=== PATIENT | male | born 1990 | race Caucasian/White ===

== ENCOUNTER 2020-06-06 12:12 | Emergency (ER) | payer MEDICAID, SELFPAY ==
[2020-06-06 12:16] VITALS: BP 142/96; PULSE 87; RESP 18; TEMP 36.9; O2SAT 98; BMI 32.2
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
--- NOTE | 2020-06-06 13:33 | CT_ITS ---
PROCEDURE: CT HEAD/BRAIN WO CON CLINICAL INDICATION: trauma Head injury with headache/pain, contusion, abrasion or hematoma COMPARISON: No exams were available for comparison TECHNIQUE: Axial images obtained. All CT scans at the facility use one or more dose reduction, viz: automated exposure control, ma/kV adjustment per patient size (including targeted exams where dose is matched to indication, i.e. head), or iterative reconstruction technique. FINDINGS: No midline shift, mass effect, intracranial hemorrhage, hydrocephalus, or extra-axial fluid collection is evident. The calvarium has an unremarkable appearance. No mastoid effusion. There is mild mucosal thickening involving the ethmoid sinuses. IMPRESSION: No acute intracranial finding Dictated by: Osmany Castaneda MD 06/06/2020 14:17 Osmany Castaneda MD in [facility] 06/06/2020 14:17
--- NOTE | 2020-06-06 13:33 | CT_ITS ---
PROCEDURE: CT ABDOMEN PELVIS W CON CLINICAL INDICATION: abd pain Nausea, vomiting, diarrhea, right-sided abdominal pain COMPARISON: No exams were available for comparison TECHNIQUE: IV Contrast: 75ML Isovue 370 Oral Contrast None Axial images obtained with sagittal and coronal reformats. All CT scans at the facility use one or more dose reduction, viz: automated exposure control, ma/kV adjustment per patient size (including targeted exams where dose is matched to indication, i.e. head), or iterative reconstruction technique. FINDINGS: LOWER THORAX: No acute finding ABDOMEN & PELVIS: The liver, spleen, adrenal glands, pancreas, and kidneys have an unremarkable appearance. No evidence of appendicitis. No intestinal obstruction or free air. No evidence of diverticulitis. No pelvic mass or abnormal fluid collection. No acute bony findings. IMPRESSION: No acute finding Dictated by: Osmany Castaneda MD 06/06/2020 14:23 Osmany Castaneda MD in [facility] 06/06/2020 14:23
[2020-06-06 13:43] VITALS: BP 132/86; PULSE 76; O2SAT 96
[2020-06-06 13:45] LABS: Basophils % 0.5 % (0.1-2.0); Eosinophils # 0.1 K/mm3 (0.0-0.4); Eosinophils % 0.9 % (0.1-12.0); Hematocrit 48.2 % (42.0-52.0); Hemoglobin 16.5 g/dL (14.1-18.0); Lymphocytes # 1.7 K/mm3 (0.7-4.5); Lymphocytes % 26.5 % (10-50); Mean Corpuscular HGB Conc 34.2 g/dL (31.8-35.4); Mean Corpuscular Hemoglobin 32.4 pg (27.0-31.2); Mean Corpuscular Volume 94.8 fl (80-94); Monocytes # 0.3 K/mm3 (0.1-1.0); Monocytes % 5.1 % (1.7-9.3); Neutrophils # 4.3 K/mm3 (1.8-7.8); Platelet Count 297 K/mm3 (142-424); Red Blood Count 5.09 M/mm3 (4.60-6.20); Red Cell Distribution Width 13.1 % (11.5-17.5); White Blood Count 6.4 K/mm3 (4.8-10.8)
[2020-06-06 13:50] LABS: Chloride 107 mmol/L (98-107); Potassium 4.5 mmoL/L (3.5-5.1); Sodium 141 mmol/L (136-145)
[2020-06-06 13:52] LABS: Blood Urea Nitrogen 17 mg/dl (9-20); Creatinine Clearance Estimated 164 mL/min (50-200); Estimated Glomerular Filt Rate 78 ml/min (>60); GFR (African American) 94 ML/MIN (>60)
[2020-06-06 13:53] LABS: Alanine Aminotransferase 74 U/L (12-78); Albumin Level 4.9 g/dl (3.5-5.0); Albumin/Globulin Ratio 1.3 (1.1-1.8); Alkaline Phosphatase 80 U/L (38-126); Anion Gap 12.5 mEq/L (5-15); Aspartate Amino Transferase 66 U/L (17-59); Bilirubin,Total 0.6 mg/dl (0.2-1.3); Calcium 9.9 mg/dl (8.4-10.2); Carbon Dioxide 26 mmol/L (22.0-30.0); Globulin 3.7 g/dL (1.3-3.2); Glucose 120 mg/dl (74-100); Lipase 90 U/L (23-300); Total Protein,Serum 8.6 g/dl (6.3-8.2)
[2020-06-06 15:01] VITALS: BP 133/77; PULSE 77; RESP 17; TEMP 36.9; O2SAT 97
[2020-06-06 15:07] VITALS: BP 150/97; PULSE 77; RESP 20; TEMP 36.6; O2SAT 98
== END 2020-06-06 15:09 | disposition home or self-care (01) ==
PROVIDERS: Emergency Provider Family Medicine
DX: R55 Syncope and collapse (principal); F07.81 Postconcussional syndrome; R11.2 Nausea with vomiting, unspecified; W00.0XXA Fall on same level due to ice and snow, initial encounter; Y92.9 Unspecified place or not applicable; R03.0 Elevated blood-pressure reading, without diagnosis of hypertension
CPT/HCPCS: 70450; 74177; 80053; 83690; 85025; 96365; 99283

== ENCOUNTER → 2020-10-27 13:37 | Outpatient (CLI) | payer MEDICAID, SELFPAY ==
[2020-10-27 14:22] LABS: Basophils # 0.1 K/mm3 (0-0.2); Eosinophils # 0.2 K/mm3 (0.0-0.4); Eosinophils % 3.3 % (0.1-12.0); Hematocrit 47.2 % (42.0-52.0); Hemoglobin 16.6 g/dL (14.1-18.0); Lymphocytes # 1.7 K/mm3 (0.7-4.5); Lymphocytes % 22.9 % (10-50); Mean Corpuscular HGB Conc 35.1 g/dL (31.8-35.4); Mean Corpuscular Volume 91.3 fl (80-94); Mean Platelet Volume 8.5 fl (7.4-10.4); Monocytes # 0.4 K/mm3 (0.1-1.0); Monocytes % 6.1 % (1.7-9.3); Neutrophils # 4.8 K/mm3 (1.8-7.8); Neutrophils % 66.7 % (37.0-80.0); Platelet Count 318 K/mm3 (142-424); Red Blood Count 5.17 M/mm3 (4.60-6.20); Red Cell Distribution Width 13.3 % (11.5-17.5); White Blood Count 7.2 K/mm3 (4.8-10.8)
[2020-10-27 14:24] LABS: Alanine Aminotransferase 39 U/L (12-78); Albumin Level 4.9 g/dl (3.5-5.0); Albumin/Globulin Ratio 1.8 (1.1-1.8); Alkaline Phosphatase 71 U/L (38-126); Anion Gap 17.7 mEq/L (5-15); Aspartate Amino Transferase 32 U/L (17-59); Bilirubin,Total 0.8 mg/dl (0.2-1.3); Blood Urea Nitrogen 16 mg/dl (9-20); Calcium 9.3 mg/dl (8.4-10.2); Carbon Dioxide 24 mmol/L (22.0-30.0); Chloride 103 mmol/L (98-107); Cholesterol 201 mg/dl (140-200); Estimated Glomerular Filt Rate 98 ml/min (>60); GFR (African American) 118 ML/MIN (>60); Globulin 2.7 g/dL (1.3-3.2); Glucose 96 mg/dl (74-100); HDL Cholesterol 50 mg/dl (40-60); Potassium 4.7 mmoL/L (3.5-5.1); Sodium 140 mmol/L (136-145); Total Protein,Serum 7.6 g/dl (6.3-8.2); Triglycerides 132 mg/dl (30-150); VLDL Cholesterol 26 mg/dL (0-40)
[2020-10-27 14:34] LABS: Direct LDL Cholesterol 124.45 mg/dL (100-129)
[2020-10-27 14:42] LABS: Free T4 (Free Thyroxine) 0.95 ng/dl (0.78-2.19)
[2020-10-27 14:55] LABS: Thyroid Stimulating Hormone 2.86 uIU/mL (0.465-4.68)
[2020-10-27 15:39] LABS: 25-OH Vitamin D, Total 38.6 ng/mL (30-100)
== END ==
PROVIDERS: Visit Provider Physician Assistant
DX: Z00.00 Encounter for general adult medical examination without abnormal findings (principal); F41.9 Anxiety disorder, unspecified; R03.0 Elevated blood-pressure reading, without diagnosis of hypertension; R74.8 Abnormal levels of other serum enzymes; E66.9 Obesity, unspecified; Z68.31 Body mass index [BMI] 31.0-31.9, adult
CPT/HCPCS: 80053; 80061; 82306; 84439; 84443; 85025

== ENCOUNTER 2020-11-30 11:52 | Observation (INO) | payer MEDICAID, SELFPAY ==
[2020-11-30] VITALS (11 sets, daily range): BP systolic 109–148; BP diastolic 69–80; PULSE 78–91; RESP 18–19; TEMP 37.4–37.9; O2SAT 94–98; BMI 30.4; BMI 30.3
--- NOTE | 2020-11-30 12:51 | XR_ITS ---
PROCEDURE: XR CHEST PORTABLE CLINICAL HISTORY: covid +, fever COMPARISON: No exams were available for comparison FINDINGS: The cardiomediastinal silhouette and pulmonary vascularity are within normal limits. There is patchy ground-glass infiltrate in the left midlung and right lung base as well as left perihilar region suspicious for viral/Covid19 pneumonia. No effusions. There is an 8 mm nodule in the right lung base medially possibly due to a granuloma. A 4 mm nodules present in the left lung base centrally and may be due to a granuloma. Calcified nodes are present in the left hilum No acute bony abnormalities. IMPRESSION: Patchy bilateral ground-glass infiltrates suspicious for Covid19 pneumonia Dictated by: Osmany Castaneda MD 11/30/2020 14:09 Osmany Castaneda MD in [facility] 11/30/2020 14:09
[2020-11-30 13:42] LABS: Basophils % 0.7 % (0.1-2.0); Eosinophils % 0.1 % (0.1-12.0); Hematocrit 49.2 % (42.0-52.0); Hemoglobin 17.1 g/dL (14.1-18.0); Lymphocytes # 1.2 K/mm3 (0.7-4.5); Lymphocytes % 24.4 % (10-50); Mean Corpuscular HGB Conc 34.7 g/dL (31.8-35.4); Mean Corpuscular Hemoglobin 32.3 pg (27.0-31.2); Mean Corpuscular Volume 93.1 fl (80-94); Mean Platelet Volume 9.2 fl (7.4-10.4); Monocytes # 0.2 K/mm3 (0.1-1.0); Monocytes % 3.6 % (1.7-9.3); Neutrophils # 3.4 K/mm3 (1.8-7.8); Neutrophils % 71.1 % (37.0-80.0); Platelet Count 195 K/mm3 (142-424); Red Blood Count 5.28 M/mm3 (4.60-6.20); Red Cell Distribution Width 13.1 % (11.5-17.5); White Blood Count 4.8 K/mm3 (4.8-10.8)
[2020-11-30 13:45] LABS: Chloride 98 mmol/L (98-107); Sodium 137 mmol/L (136-145)
[2020-11-30 13:47] LABS: Alanine Aminotransferase 39 U/L (12-78); Aspartate Amino Transferase 62 U/L (17-59); Blood Urea Nitrogen 11 mg/dl (9-20); Creatinine Clearance Estimated 142 mL/min (50-200); Estimated Glomerular Filt Rate 70 ml/min (>60); GFR (African American) 85 ML/MIN (>60)
[2020-11-30 13:48] LABS: Albumin Level 4.4 g/dl (3.5-5.0); Albumin/Globulin Ratio 1.3 (1.1-1.8); Alkaline Phosphatase 63 U/L (38-126); Bilirubin,Total 0.5 mg/dl (0.2-1.3); Calcium 8.3 mg/dl (8.4-10.2); Carbon Dioxide 25 mmol/L (22.0-30.0); Globulin 3.3 g/dL (1.3-3.2); Glucose 110 mg/dl (74-100); Total Protein,Serum 7.7 g/dl (6.3-8.2)
--- NOTE | 2020-11-30 14:12 | HMH.EDGENADL ---
ED Disposition Clinical Impression: Pneumonia due to COVID-19 virus, Hypoxia Disposition: Admitted As Inpatient Condition on Discharge: [facility] - Critical Care Critical Care Time: No Attestation: On 11/30/20, the high probability of a clinically significant, sudden or life threatening deterioration of the following system(s) required my full and direct attention, intervention and personal management. The time I documented below is in addition to time spent performing reported procedures but includes the following listed in this critical care notation. Medical Decision Making - Joe Inquiry Pt receiving controlled substance: No Vital Signs: 11/30/20 11:53 11/30/20 12:30 11/30/20 13:15 Temperature 99.4 F Temperature Source Oral Pulse Rate 86 80 Pulse Rate [Right] 91 H Respiratory Rate 18 Blood Pressure 109/70 L 116/80 Blood Pressure [Right Arm] 114/70 Blood Pressure Mean [Right Arm] 84 02 Sat by Pulse Oximetry 94 L 94 L 96 Oxygen Delivery Method Room Air 11/30/20 14:34 11/30/20 15:10 11/30/20 15:17 Temperature 99.4 F Temperature Source Oral Pulse Rate 90 86 88 Pulse Rate [Right] Respiratory Rate 18 Blood Pressure 125/69 148/74 H 148/74 H Blood Pressure [Right Arm] Blood Pressure Mean [Right Arm] 02 Sat by Pulse Oximetry 96 97 Oxygen Delivery Method Room Air 11/30/20 15:30 Temperature Temperature Source Pulse Rate 82 Pulse Rate [Right] Respiratory Rate Blood Pressure 131/70 Blood Pressure [Right Arm] Blood Pressure Mean [Right Arm] 02 Sat by Pulse Oximetry 97 Oxygen Delivery Method - Lab Data Lab Results 11/30/20 13:35: WBC 4.8, RBC 5.28, Hgb 17.1, Hct 49.2, MCV 93.1, MCH 32.3 H, MCHC 34.7, RDW 13.1, Plt Count 195, MPV 9.2, Neut % (Auto) 71.1, Lymph % (Auto) 24.4, Walker % (Auto) 3.6, Eos % (Auto) 0.1, Baso % (Auto) 0.7, Neut # (Auto) 3.4, Lymph # (Auto) 1.2, Walker # (Auto) 0.2, Eos # (Auto) 0.0, Baso # (Auto) 0.0 11/30/20 13:35: Sodium 137, Potassium 4.0, Chloride 98, Carbon Dioxide 25, Anion Gap 18.0 H, BUN 11, Creatinine 1.20, Estimated Creat Clear 142, Estimated GFR 70, Est GFR ( Amer) 85, Glucose 110 H, Calcium 8.3 L, Total Bilirubin 0.5, AST 62 H, ALT 39, Alkaline Phosphatase 63, Total Protein 7.7, Albumin 4.4, Globulin 3.3 H, Albumin/Globulin Ratio 1.3 11/30/20 14:30: Lactate 0.7 11/30/20 14:30: SARS-CoV-2 (PCR) Detected A, Influenza A Untype (PCR) Not detected, Influenza Type B (PCR) Not detected Result diagrams: 11/30/20 13:35 11/30/20 13:35 Orders (Tests/Meds): ED MEDICATIONS Generic Name Dose Route Start Last Admin Trade Name Freq PRN Reason Stop Dose Admin Acetaminophen 650 mg 11/30/20 15:19 Acetaminophen 325mg Tab PO 12/30/20 15:18 Q6HP PRN Mild pain,fever,headache Ascorbic Acid 500 mg 11/30/20 17:00 Ascorbic Acid 500mg Tab PO 12/30/20 16:59 QID GINGER Dexamethasone Sodium Phosphate 6 mg 11/30/20 15:19 Dexamethasone 4mg/Ml 1ml Vial IV 12/30/20 15:18 DAILY GINGER Enoxaparin Sodium 60 mg 11/30/20 15:19 Enoxaparin 60mg/0.6ml Syringe SQ 12/30/20 15:18 DAILY GINGER Ergocalciferol 50,000 unit 11/30/20 15:19 Ergocalciferol 50,000 Units (1.25mg) Capsule PO 12/30/20 15:18 WEEKLY GINGER Famotidine 20 mg 11/30/20 21:00 Famotidine 20mg Tablet PO 12/30/20 20:59 BID GINGER Sodium Chloride 1,000 mls @ 100 mls/hr 11/30/20 15:19 Sod Chlor 0.9% 1000ml Bag IV 12/30/20 15:18 .Q10H GINGER Remdesivir 200 mg/ Sodium 250 mls @ 250 mls/hr 11/30/20 15:45 Chloride IV 11/30/20 16:44 ONCE ONE Remdesivir 100 mg/ Sodium 100 mls @ 100 mls/hr 12/01/20 15:00 Chloride IV 12/04/20 15:59 Q24H GINGER Sodium Chloride 10 ml 11/30/20 15:19 Sodium Chloride 0.9% 10ml Syr (Rad Only) IV 12/30/20 14:54 NEEDED PRN Maintain IV Site Sodium Chloride 10 ml 11/30/20 15:19 Sodium Chloride 0.9% 10ml Flush Syringe IV 12/30/20 15:18 NEEDED PRN M
--- NOTE | 2020-11-30 14:14 | CT_ITS ---
PROCEDURE: CT ANGIO CHEST PE PROTOCOL CLINCIAL INDICATION: covid, hypoxia COMPARISON: No exams were available for comparison TECHNIQUE: IV Contrast: 70ML Isovue 370 Axial images obtained with sagittal and coronal reformats. All CT scans at the facility use one or more dose reduction, viz: automated exposure control, ma/kV adjustment per patient size (including targeted exams where dose is matched to indication, i.e. head), or iterative reconstruction technique. FINDINGS: The contrast opacification is less than optimal. There is no large central pulmonary embolus. The peripheral pulmonary arteries are not adequately opacified. No evidence of aortic aneurysm or dissection. There is some increased soft tissue density in the anterior mediastinum which may be related to residual thymic tissue. Gynecomastia is noted. There are multifocal areas ground-glass opacification in both upper and lower lobes consistent with Covid19 pneumonia. No effusions. Minimal atelectasis in the right lung base. The extreme lung apices are not included on the exam. There is some minimal pericardial thickening IMPRESSION: Multifocal areas of ground-glass opacification consistent with Covid19 pneumonia No evidence of central pulmonary embolus. Dictated by: Osmany Castaneda MD 11/30/2020 15:27 Osmany Castaneda MD in [facility] 11/30/2020 15:27
--- NOTE | 2020-11-30 14:33 | PC.NURSE ---
notified care management of admission
[2020-11-30 14:40] LABS: Influenza A, PCR Not Detected (NotDetected); Influenza B, PCR Not Detected (NotDetected)
--- NOTE | 2020-11-30 14:44 | PC.NURSE ---
pt with radiology
[2020-11-30 14:52] LABS: Lactic Acid 0.7 mmol/L (0.7-2.1)
[2020-11-30 15:12] LABS: Coronavirus 19, PCR Detected (NotDetected)
--- NOTE | 2020-11-30 15:17 | PC.NURSE ---
Report given to Aubree SONI.
--- NOTE | 2020-11-30 15:42 | HMH.PHAVTE ---
[facility] Pharmacy VTE Monitoring - Patient Demographics Admission date: 11/30/20 Report Date: 11/30/20 Time: 15:42 Allergies/Adverse Reactions: Patient Allergies No Known Allergies Allergy (Verified 10/27/20 10:54) Height: 1.93 m Weight: 113.398 kg Patient Problems: Current Active Problems Pneumonia due to COVID-19 virus (Acute) Hypoxia (Acute) - VTE Risk Labs: VTE Related Lab Results Hgb 17.1 g/dL (14.1-18.0) 11/30/20 13:35 Hct 49.2 % (42.0-52.0) 11/30/20 13:35 Plt Count 195 K/mm3 (142-424) 11/30/20 13:35 BUN 11 mg/dl (9-20) 11/30/20 13:35 Creatinine 1.20 mg/dl (0.66-1.25) 11/30/20 13:35 Estimated Creat Clear 142 mL/min (50-200) 11/30/20 13:35 - Prophylaxis Types of VTE Prophylaxis: TEDS Knee High, Pharmacological (LOVENOX AND TEDS)
--- NOTE | 2020-11-30 16:05 | PC.NURSE ---
Pt arrived to floor at this time
--- NOTE | 2020-11-30 17:37 | PC.NURSE ---
Pt unable to induce sputum sample at this. Instruction given and cup left at bedside.
--- NOTE | 2020-11-30 18:08 | PC.NURSE ---
Pt arrived to unit at 1600. Pt has been febrile, highest temp 101.5, and 1 episode of N/V and has been treated per MAR with favorable results. Pt has voiced no complaints of pain. Pt is able to ambulate to bathroom independently. Call light within reach. Will continue to monitor.
[2020-12-01] VITALS: BP 132/72; PULSE 81; RESP 16; TEMP 36.7; O2SAT 96
--- NOTE | 2020-12-01 03:15 | PC.NURSE ---
Pt. has not c/o n/v/d, pain or dizziness this shift. Intermittent nonproductive cough noted. RA with o2 sat 95-97%. Resting in bed with eyes closed at this time.
[2020-12-01 04:00] VITALS: BP 120/84; PULSE 89; RESP 20; TEMP 37.6; O2SAT 97
[2020-12-01 06:00] VITALS: BMI 30.3
[2020-12-01 07:36] LABS: Chloride 101 mmol/L (98-107); Potassium 3.9 mmoL/L (3.5-5.1); Sodium 138 mmol/L (136-145)
[2020-12-01 07:39] LABS: Blood Urea Nitrogen 10 mg/dl (9-20); Creatinine Clearance Estimated 188 mL/min (50-200); Estimated Glomerular Filt Rate 98 ml/min (>60); GFR (African American) 118 ML/MIN (>60)
[2020-12-01 07:40] LABS: Alanine Aminotransferase 40 U/L (12-78); Alkaline Phosphatase 52 U/L (38-126); Anion Gap 18.9 mEq/L (5-15); Aspartate Amino Transferase 59 U/L (17-59); Bilirubin,Direct 0.4 mg/dl (0.0-0.4); Bilirubin,Total 0.4 mg/dl (0.2-1.3); Calcium 8.1 mg/dl (8.4-10.2); Carbon Dioxide 22 mmol/L (22.0-30.0); Glucose 126 mg/dl (74-100)
--- NOTE | 2020-12-01 07:51 | HMH.HP ---
*Admission Date: 11/30/20 *Chief complaint: Shortness of breath *History of present illness: 30 YOM presented to [facility] ED for SOA and emesis x 1 day. 7 days prior and was positive, his entire family including father is also positive. His father was inpatient at [facility] for several days he did not require ventilation while there has been discharged back to home now. His temperature has been high as 100.3, yesterday it was 94 he became worried along with increasing shortness of breath and nonproductive cough presented to the emergency department. Reports having no chronic medical conditions, is on no medication. BuSpar. He denies tobacco products, alcohol occasionally, denies any illicit use. He also denies pelvic pain 11/30/20 CXR: FINDINGS: The cardiomediastinal silhouette and pulmonary vascularity are within normal limits. There is patchy ground-glass infiltrate in the left midlung and right lung base as well as left perihilar region suspicious for viral/Covid19 pneumonia. No effusions. There is an 8 mm nodule in the right lung base medially possibly due to a granuloma. A 4 mm nodules present in the left lung base centrally and may be due to a granuloma. Calcified nodes are present in the left hilum No acute bony abnormalities. IMPRESSION: Patchy bilateral ground-glass infiltrates suspicious for Covid19 pneumonia Dictated by: Osmany Castaneda MD 11/30/20 Chest CTA: FINDINGS: The contrast opacification is less than optimal. There is no large central pulmonary embolus. The peripheral pulmonary arteries are not adequately opacified. No evidence of aortic aneurysm or dissection. There is some increased soft tissue density in the anterior mediastinum which may be related to residual thymic tissue. Gynecomastia is noted. There are multifocal areas ground-glass opacification in both upper and lower lobes consistent with Covid19 pneumonia. No effusions. Minimal atelectasis in the right lung base. The extreme lung apices are not included on the exam. There is some minimal pericardial thickening IMPRESSION: Multifocal areas of ground-glass opacification consistent with Covid19 pneumonia No evidence of central pulmonary embolus. Dictated by: Osmany Castaneda MD 30 year old Male presents in bed resting quietly with declined treatment, he denies any respiratory distress during the night. He does report occasional white productive cough, sputum sample obtained. Current oxygenation 97% on room air [facility] History I have reviewed the patient's past medical history: Yes Medical History: Denies:: Internal Pacemaker *Have you ever received a pneumonia vaccine?: No *Have you received a flu vaccine this season?: No Laterality Cases: Right: Arthroscopy Knee Other Surgeries: No: Pacemaker - *Social History Last grade of school completed: High school graduate Smoking Status: Never smoker Alcohol Intake: current Alcohol Intake Frequency:: holidays/special occasions only Substance Use Type: denies use *Occupational Status:: employed Housing: house Household Members: spouse, children *Travel in the last 8 weeks: None Family Hx:: Cancer, Hypertension Review of Systems - Review of Systems Review of systems:: pertinent systems reviewed and negative unless documented below - Constitutional Reports fatigue, Reports fever(s), Reports lack of energy - Eyes Denies change in vision, Denies double vision - ENT Denies abnormal hearing, Denies dizziness - *Cardiovascular Reports shortness of breath, Reports shortness of breath with activity - *Respiratory Reports chest congestion, Reports cough, Reports shortness of breath, Reports shortness of breath with activity - *Gastrointestinal Denies abdominal pain, Denies constipation - *Musculoskeletal Reports muscle weakness, Denies joint pain - Integumentary/Breasts Denies bleeding lesions, Denies yellowing of the skin - *Neurologic Reports
[2020-12-01 08:00] VITALS: BP 129/71; PULSE 98; RESP 19; TEMP 38.1; O2SAT 94; O2SAT 98
--- NOTE | 2020-12-01 10:25 | HMH.PULMCON ---
*Admission Date: 11/30/20 *Reason for consult:: Acute hypoxic respiratory failure, COVID-19 pneumonia *History of present illness: Mr. Kohler is a 30-year-old male no significant smoking history momentarily smoked when he was in high school, no prior respiratory complaints, and Unvaccinated for COVID-19 pneumonia presented to the hospital with subjective fevers and worsening respiratory failure. Patient admits high-grade fever since Saturday however since the 2 days patient noted to be hypothermic along with weakness and dizziness along with worsening respiratory distress admitted to the hospital for management of COVID-19 pneumonia and pulmonary was called. His father was recently diagnosed with COVID-19 pneumonia [facility] History Medical History: Denies:: Internal Pacemaker *Have you ever received a pneumonia vaccine?: No *Have you received a flu vaccine this season?: No Laterality Cases: Right: Arthroscopy Knee Other Surgeries: No: Pacemaker - *Social History Last grade of school completed: High school graduate Smoking Status: Never smoker Alcohol Intake: current Alcohol Intake Frequency:: holidays/special occasions only Substance Use Type: denies use *Occupational Status:: employed Housing: house Household Members: spouse, children *Travel in the last 8 weeks: None Family Hx:: Cancer, Hypertension ROS - Cons Reports anorexia, Reports body ache(s), Reports chills, Reports fever(s) - Eyes Denies blind spots, Denies blurry vision - ENT Reports abnormal hearing - Card Reports shortness of breath, Reports shortness of breath with activity - Resp Respiratory: Reports chest congestion, Reports cough, Reports non-productive cough, Denies excessive phlegm production, Denies coughing up blood, Denies pain on inspiration, Denies pain with cough, Denies pain with breathing - GI Gastrointestingal: Denies: abdominal pain - Musk Musculoskeletal: Denies back pain - Psych Reports abnormal sleep pattern Meds Home Medications Medication Instructions Recorded Confirmed Type Buspirone HCl [Buspar 5mg tablet] 5 mg PO BID 11/30/20 11/30/20 History Allergies Allergy/AdvReac Type Severity Reaction Status Date / Time No Known Allergies Allergy Verified 10/27/20 10:54 Exam - Constitutional Constitutional:: Present: no acute distress, comfortable - HENMT Exam HENMT: Present: normocephalic, atraumatic - Eye Exam Eyes:: Present: normal appearance both eyes and related structures - Neck Exam Neck:: Present: normal visual inspection, thyroid normal - Respiratory Exam Respiratory:: Present: able to speak in complete sentences, no respiratory distress, crackles. Absent: wheezing - Cardiovascular Exam Cardiac:: Present: S1, S2 - GI Exam GI:: Present: soft, no hepatosplenomegaly - Skin Exam Skin: Present: warm, no rash, dry - Neurological Exam Neurological: Present: alert, awake, normal cognition - Extremities Exam Extremities: Present: no cyanosis, no clubbing, no edema Internal Medicine - CN: Reslt - Labs CBC & Chem 7: 11/30/20 13:35 12/01/20 06:06 Labs: Short CBC 11/30/20 Range/Units 13:35 WBC 4.8 (4.8-10.8) K/mm3 Hgb 17.1 (14.1-18.0) g/dL Hct 49.2 (42.0-52.0) % Plt Count 195 (142-424) K/mm3 BMP 11/30/20 12/01/20 13:35 06:06 Sodium 137 138 Potassium 4.0 3.9 Chloride 98 101 Carbon Dioxide 25 22 BUN 11 10 Creatinine 1.20 0.90 D Glucose 110 H 126 H Calcium 8.3 L 8.1 L Liver Function 11/30/20 12/01/20 Range/Units 13:35 06:06 Total Bilirubin 0.5 0.4 (0.2-1.3) mg/dl Direct Bilirubin 0.4 (0.0-0.4) mg/dl AST 62 H 59 (17-59) U/L ALT 39 40 (12-78) U/L Alkaline Phosphatase 63 52 (38-126) U/L Albumin 4.4 4.0 (3.5-5.0) g/dl Assessment and Plan (1) Obesity (BMI 30.0-34.9) Status: Acute Category: Medical Code(s): E66.9 - Obesity, unspecified (2) Pneumonia due to COVID-19 virus Status: Acute Categ
[2020-12-01 11:26] LABS: Lactate Dehydrogenase 279 U/L (313-618)
[2020-12-01 11:32] LABS: C-Reactive Protein 18.3 mg/L (0-4)
[2020-12-01 11:33] LABS: D-Dimer 0.47 ug/mL (0.0-0.5)
[2020-12-01 12:00] VITALS: BP 121/66; PULSE 98; RESP 20; TEMP 36.6; O2SAT 96
--- NOTE | 2020-12-01 13:39 | PC.NURSE ---
This RN has taken over pt care at this time
--- NOTE | 2020-12-01 15:04 | PC.NURSE ---
[id number]- spoke to River at [facility] office regarding positive blood cultures on pt
--- NOTE | 2020-12-01 15:16 | PC.NURSE ---
spoke to Radha from lab, verified pt's , room number and name, passed information on to primary nurse, ZACHARIAH Jewell
[2020-12-01 16:00] VITALS: BP 136/66; PULSE 96; RESP 18; TEMP 36.8; O2SAT 97
[2020-12-01 20:00] VITALS: BP 141/86; PULSE 97; RESP 20; TEMP 37.1; O2SAT 96
[2020-12-02] VITALS: BP 105/62; PULSE 72; RESP 20; TEMP 36.7; O2SAT 95
--- NOTE | 2020-12-02 03:01 | PC.NURSE ---
Pt c/o anxiety this shift. Pt stated that he missed two doses of buspar. Medication was administered. Pt continued to c/o anxiety and requested to have something to sleep. [facility] notified. Ativan 1 mg PO ordered and administered. Pt remains on RA. O2 sats have remained mid to upper 90s. Lungs are diminished. Pt states he wants to go home in the morning. No other concerns. Will continue to monitor.
[2020-12-02 04:00] VITALS: BP 126/68; PULSE 67; RESP 28; TEMP 36.8; O2SAT 97
[2020-12-02 05:03] VITALS: BMI 30.1
[2020-12-02 06:54] LABS: Alanine Aminotransferase 32 U/L (12-78); Albumin Level 3.5 g/dl (3.5-5.0); Alkaline Phosphatase 44 U/L (38-126); Aspartate Amino Transferase 52 U/L (17-59); Bilirubin,Direct 0.2 mg/dl (0.0-0.4); Bilirubin,Total 0.2 mg/dl (0.2-1.3); Blood Urea Nitrogen 14 mg/dl (9-20); Carbon Dioxide 26 mmol/L (22.0-30.0); Chloride 105 mmol/L (98-107); Creatinine Clearance Estimated 211 mL/min (50-200); Estimated Glomerular Filt Rate 112 ml/min (>60); GFR (African American) 136 ML/MIN (>60); Glucose 130 mg/dl (74-100); Sodium 140 mmol/L (136-145); Total Protein,Serum 6.3 g/dl (6.3-8.2)
[2020-12-02 08:00] VITALS: BP 138/80; PULSE 104; RESP 18; TEMP 36.8; O2SAT 93
--- NOTE | 2020-12-02 09:00 | P.PN_ITS ---
Internal Medicine - PN: Subj *Date: 12/02/20 *Time: 12:24 Interval history: No acute res events overnight. Weaned to RA this morning. Exam - Constitutional Constitutional:: Present: no acute distress, comfortable - HENMT Exam HENMT: Present: normocephalic - Eye Exam Eyes:: Present: normal appearance both eyes and related structures - Neck Exam Neck:: Present: normal visual inspection - Respiratory Exam Respiratory:: Present: able to speak in complete sentences, no respiratory distress - Cardiovascular Exam Cardiac:: Present: S1, S2 - GI Exam GI:: Present: soft - Skin Exam Skin: Present: warm, no rash - Neurological Exam Neurological: Present: alert, awake, normal cognition - Extremities Exam Extremities: Present: no cyanosis, no clubbing, no edema Assessment and Plan (1) Obesity (BMI 30.0-34.9) Status: Acute Category: Medical Code(s): E66.9 - Obesity, unspecified (2) Pneumonia due to COVID-19 virus Status: Acute Category: Medical Code(s): U07.1 - COVID-19; J12.82 - Pneumonia due to coronavirus disease 2019 (3) COVID-19 Status: Acute Category: Medical Code(s): U07.1 - COVID-19 - Assessment and plan all Dx Assessment and Plan for all problems:: #Acute hypoxic respiratory failure: #COVID-19 pneumonia: Mr. Kohler is a 30-year-old no prior respiratory complaint no significant smoking history and vaccinated for COVID-19 pneumonia presented to the hospital subjective fevers weakness and worsening respiratory distress along with nonproductive cough and found to be positive for COVID-19 pneumonia. Patient admits sick contact CT and admission showed bilateral patchy airspace disease with no evidence of pulmonary embolism. D-dimer within normal limits at 0.47 CRP mildly elevated at 18.3 with LDH at 279. Blood culture preliminary staph in 1 bottle within 24 hours, consider repeating blood cultures before ruling out as contaminant,awaiting speciation, methicillin esistance status along with nasal MRSA PCR, as this patient significantly improved, this can be followed as an outpatient by primary care Sputum preliminary staining showing gram-positive cocci in chains and clusters. Respiratory significantly improved, on room air this morning. Plan: Continue remdesivir dexamethasone at 6 mg twice daily for Covid 19 pneumonia until discharge Levofloxacin daily for possible community-acquired pneumonia x days Advair HFA twice daily on discharge, patient advised to wean inhaler frequency as tolerated Recommend chemical DVT prophylaxis #Thank you for involving pulmonary in this patient care. We will follow the p linnette in pulmonary clinic in 4-6 weeks. Please call with any further questions or concerns
[2020-12-02 12:00] VITALS: BP 141/73; PULSE 80; RESP 20; TEMP 37.2; O2SAT 95
--- NOTE | 2020-12-02 12:27 | DIET.NUTRFU ---
Pt admitted with pneumonia due to COVID-19 virus. Pt with improved PO intake. PO intake 92% average at last three meals. Will continue to monitor.
--- NOTE | 2020-12-02 13:10 | HMH.DCSUM ---
General - General Admission date:: 11/30/20 Discharge date: 12/02/20 HPI HPI: 30 YOM presented to [facility] ED for SOA and emesis x 1 day. 7 days prior and was positive, his entire family including father is also positive. His father was inpatient at [facility] for several days he did not require ventilation while there has been discharged back to home now. His temperature has been high as 100.3, yesterday it was 94 he became worried along with increasing shortness of breath and nonproductive cough presented to the emergency department. Reports having no chronic medical conditions, is on no medication. BuSpar. He denies tobacco products, alcohol occasionally, denies any illicit use. He also denies pelvic pain Hospital Course Hospital Course: 30 YOM presented to [facility] ED for SOA and emesis x 1 day. 7 days prior and was positive, his entire family including father is also positive. His father was inpatient at [facility] for several days he did not require ventilation while there has been discharged back to home now. His temperature has been high as 100.3, yesterday it was 94 he became worried along with increasing shortness of breath and nonproductive cough presented to the emergency department. Reports having no chronic medical conditions, is on no medication. BuSpar. He denies tobacco products, alcohol occasionally, denies any illicit use. He also denies pelvic pain 11/30/20 CXR: FINDINGS: The cardiomediastinal silhouette and pulmonary vascularity are within normal limits. There is patchy ground-glass infiltrate in the left midlung and right lung base as well as left perihilar region suspicious for viral/Covid19 pneumonia. No effusions. There is an 8 mm nodule in the right lung base medially possibly due to a granuloma. A 4 mm nodules present in the left lung base centrally and may be due to a granuloma. Calcified nodes are present in the left hilum No acute bony abnormalities. IMPRESSION: Patchy bilateral ground-glass infiltrates suspicious for Covid19 pneumonia Dictated by: Osmany Castaneda MD 11/30/20 Chest CTA: FINDINGS: The contrast opacification is less than optimal. There is no large central pulmonary embolus. The peripheral pulmonary arteries are not adequately opacified. No evidence of aortic aneurysm or dissection. There is some increased soft tissue density in the anterior mediastinum which may be related to residual thymic tissue. Gynecomastia is noted. There are multifocal areas ground-glass opacification in both upper and lower lobes consistent with Covid19 pneumonia. No effusions. Minimal atelectasis in the right lung base. The extreme lung apices are not included on the exam. There is some minimal pericardial thickening IMPRESSION: Multifocal areas of ground-glass opacification consistent with Covid19 pneumonia No evidence of central pulmonary embolus. Dictated by: Osmany Castaneda MD Pulmonology has seen and recommends: Levofloxacin daily for possible community-acquired pneumonia x days Advair HFA twice daily on discharge, patient advised to wean inhaler frequency as tolerated Recommend chemical DVT prophylaxis #Thank you for involving pulmonary in this patient care. We will follow the patient in pulmonary clinic in 4-6 weeks. Please call with any further questions or concerns During his stay he is receiving levofloxacin, remdesivir, and dexamethasone IV. 30-year-old male patient lying in bed resting quietly, he denies any respiratory distress during the night and asking to be discharged home. He denies any cough, respiratory distress, or shortness of breath during stay, oxygen saturation currently 98% on room air. Discussed discharge home with importance placed on follow-up appointments, he agrees will attend all follow-up appointments. PLAN: 1. We will discharge home today 2. Levofloxacin 750 mg daily p.o. x5 days 3. Advair inh
== END 2020-12-02 14:20 | disposition home or self-care (01) ==
LOC: ER 12:56 → ICU 14:39
PROVIDERS: Internal Medicine Pulmonary Disease; Admitting Provider Emergency Medicine; Emergency Provider Emergency Medicine; PCP Physician Assistant; Visit Provider Emergency Medicine
DX: U07.1 COVID-19 (principal); J12.82 Pneumonia due to coronavirus disease 2019
CPT/HCPCS: 36415; 71045; 71275; 80048; 80053; 80076; 83605; 83615; 85025; 85378; 86140; 87040; 87070; 87077; 87081; 87186; 87205; 99284; G0378; J1956; J2405; Q9967; U0003

== ENCOUNTER 2021-03-06 08:06 | Emergency (ER) | payer MEDICAID, SELFPAY ==
[2021-03-06 08:07] VITALS: BP 178/87; PULSE 70; RESP 18; TEMP 36.8; O2SAT 97; BMI 30.4
--- NOTE | 2021-03-06 08:24 | HMH.EDGENADL ---
ED Disposition Clinical Impression: Back pain Qualifiers: Back pain location: thoracic back pain Chronicity: acute Back pain laterality: midline Qualified Code(s): M54.6 - Pain in thoracic spine Disposition: Home, Self-Care Condition on Discharge: Good Referrals: Elsie Boyle PA [Primary Care Provider] - (Call for an appointment) Time of Disposition: 08:28 - Critical Care Critical Care Time: No Attestation: On 03/06/21, the high probability of a clinically significant, sudden or life threatening deterioration of the following system(s) required my full and direct attention, intervention and personal management. The time I documented below is in addition to time spent performing reported procedures but includes the following listed in this critical care notation. Medical Decision Making - Medical Records Medical records reviewed: Yes: I reviewed the patient's medical records. - Joe Inquiry Pt receiving controlled substance: No Vital Signs: 03/06/21 08:07 Temperature 98.3 F Temperature Source Oral Pulse Rate [Left Radial] 70 Respiratory Rate 18 Blood Pressure [Right Arm] 178/87 H Blood Pressure Mean [Right Arm] 117 02 Sat by Pulse Oximetry 97 Oxygen Delivery Method Room Air Medical Decision Narrative: 30yo M evaluated for 6 weeks of upper back pain without specific injury. Patient no acute distress on initial evaluation. Differential diagnosis includes was not limited to: Osteoarthritis, rheumatoid arthritis, osteomyelitis, degenerative disc disease. Patient does have some tenderness over his upper thoracic spine. He is already had x-rays obtained that were benign. Discussed with the patient his best next move would be to see his PCP and obtain an order for MRI for further evaluation. He has had no fever, no weight loss (other than during acute illness with Covid which he has gained back), no cough, no decrease in exercise tolerance. He is appropriate and stable for discharge with outpatient follow-up. General Adult HPI - General Chief complaint: PAIN Stated complaint: upper back pain for about 6 weeks Time Seen by Provider: 03/06/21 08:06 Mode of Arrival: Ambulatory Limitations: No Limitations Description of Symptoms (Recalled from ER Triage Doc. by RN): pt to ed per pvt car. pt is c/o upper back pain x6 weeks every morning when he wakes up. pt denies any injury or recent heavy lifting. pt states he does not have the pain during the day, it's only when he wakes up in the morning. pt states this pain does not radiate into any extremities. - History of Present Illness HPI narrative: 30yo M presents the emergency department secondary to upper back pain x6 weeks. Patient denies any recent trauma or fall. He states his pain is worse in the morning when he wakes up and improves as he gets moving for the day. Denies any history of IV drug abuse. Denies any history of heavy alcohol use. Denies any history of osteomyelitis or other deep space infections. Patient denies any fever, cough, nausea/vomit/diarrhea. Patient is being evaluated and treated by chiropractor for several weeks with no improvement. He had x-rays completed of chiropractor's office and no bony abnormalities were appreciated on plain films. - Related Data Previous Rx's Medication Instructions Recorded Budesonide/Formoterol Fumarate 2 puff INHALATION BID 30 Days 12/02/20 [Budesonide-Formoterol 160-4.5] #10.2 g clonazepam 0.5 mg tablet 0.25 mg PO BID #30 tab 12/19/20 escitalopram oxalate 10 mg tablet 10 mg PO DAILY #30 tab 02/23/21 Allergies Allergy/AdvReac Type Severity Reaction Status Date / Time No Known Allergies Allergy Verified 02/23/21 11:27 [facility] History - Hepatitis A Screen Drug use history?: No High risk sexual behaviors?: No History of sexually transmitted infection?: No Currently employed?: No Childcare worker?: No Do you have indoor plumbing?: Yes Do you have electricity?: Yes Attestation stat
[2021-03-06 08:43] VITALS: BP 160/79; PULSE 72; RESP 18; TEMP 36.8; O2SAT 98
== END 2021-03-06 08:44 | disposition home or self-care (01) ==
PROVIDERS: Emergency Provider Family Medicine; PCP Physician Assistant
DX: M54.6 Pain in thoracic spine (principal); F41.9 Anxiety disorder, unspecified
CPT/HCPCS: 99281

== ENCOUNTER → 2021-03-16 13:37 | Outpatient (CLI) | payer MEDICAID, SELFPAY ==
--- NOTE | 2021-03-16 13:37 | MR_ITS ---
PROCEDURE: MR THORACIC SPINE WO CON CLINICAL INDICATION: thoracic pain COMPARISON: CT CT ANGIO CHEST PE PROTOCOL from 11/30/2020 TECHNIQUE: Routine multiplanar multi echo sequences are performed without gadolinium enhancement. FINDINGS: There is normal alignment. There is a small area of decreased T1 and increased T2 signal involving the anterior inferior aspect of the T4 vertebral body and the anterior and superior aspect of the T11 vertebral body as well as the anterior and inferior aspect of the T9 vertebral body. T3-T4: Small left paracentral disc protrusion abutting the anterior aspect of the cord. T5-T6: Mild degenerative disc disease with minimal bulging disc. T6-T7: Minimal bulging disc with degenerative disc disease. T7-T8 and T8-T9 show some minimal irregularity the endplates. The spinal cord has an unremarkable appearance. No extruded herniated disc. No bony canal stenosis. There may be some underlying residual airspace disease in the lower lobes. This is difficult to ascertain with MRI may be better evaluated with CT. There is bony bridging involving the medial aspect of the right 4th and 5th ribs better seen on the previous CT scan IMPRESSION: Multilevel degenerative changes as described above. Please see above for detailed description. There is a small left paracentral disc protrusion at T3-T4 abutting the anterior aspect of the cord on the left. Areas of bone marrow edema involving the T4, T9, and T11 vertebral bodies anteriorly. These could represent developing type 1 endplate changes. Suggest 3 month follow-up to confirm stability. Possible residual airspace disease in the lower lobes. Consider chest CT for confirmation. Dictated by: Osmany Castaneda MD 03/17/2021 08:19 Osmany Castaneda MD in [place] 03/17/2021 08:19
== END ==
PROVIDERS: PCP Physician Assistant; Visit Provider Physician Assistant
DX: R07.9 Chest pain, unspecified (principal)
CPT/HCPCS: 72146

== ENCOUNTER → 2021-04-11 10:59 | Outpatient (POV) | payer MEDICAID, SELFPAY ==
[2021-04-11 11:34] VITALS: BP 142/68; PULSE 72; RESP 18; O2SAT 97; BMI 30.4
--- NOTE | 2021-04-13 07:49 | HMH.PMCON ---
Assessment and Plan (1) Degenerative disc disease, thoracic Status: Acute Category: Medical Code(s): M51.34 - Other intervertebral disc degeneration, thoracic region (2) Thoracic radiculopathy Status: Acute Category: Medical Code(s): M54.14 - Radiculopathy, thoracic region - Assessment and plan all Dx Assessment and Plan for all problems:: Patient is here today for mid back pain. He has not had physical therapy at this time. We will refer the patient to PT,and will start the patient on diclofenac 75 mg po bid, prednisone 20 mg 1 tablet po bid x days, and will start the patient on Cymbalta 30 mg 1 tablet by mouth daily. Patient does have an MRI that reports small left paracentral disc protrusion at T3-T4 abutting the anterior aspect of the cord on the left . Patient I did discuss the risks and side effects of the medication. He would like to try medications before beginning injective therapy. We will see him back in 2 weeks to see if medication and physical therapy. Risks and benefits of the medication have been explained in detail to the patient. If side effects do present with the medication, patient has been advised to stop the medication immediately and call the clinic. The patient has been advised to consult with his/her primary care provider and pharmacist regarding drug-drug interaction of medications currently prescribed. Pain management contract has been signed today. Patient has been instructed to contact the clinic with any concerns before the next appointment. Dr. Damon has reviewed this note and agrees with this plan of care. This note was dictated using voice recognition software and make contain errors or omissions. HPI - Data of Consult Patient: new to practice Consult date: 04/13/21 Requesting Physician: Sultana Pena APRN - Consult Narrative Reason for consult: mid back pain History of present illness: Mr. Kohler is a 31 year old male who presents today for complaints of mid back pain. He does report the pain to have worsened since January 2021. The pain has progressively worsened since then. He says the pain is more nocturnal, waking him at bedtime due to pain. He says the pain does improve somewhat during the day. 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 He describes the pain as throbbing and sharp in nature. He has gone to chiropractic therapy, as well as continued home stretching. He does take over the counter anti inflammatory medications in the past with minimal relief. He rates his pain a 6/10. He denies any bowel or bladder changes. He denies any pain/numbness or tingling to bilateral upper or lower extremities. He does report to have severe anxiety and has tried multiple medications in the past with side effects. He does have imaging of his thoracic spine CC: Sultana Pena APRN [facility] History I have reviewed the patient's past medical history: Yes Medical History: Reports:: Anxiety Denies:: Internal Pacemaker *Have you ever received a pneumonia vaccine?: No *Have you received a flu vaccine this season?: No Laterality Cases: Right: Arthroscopy Knee Other Surgeries: Yes: Other (Gum graft, meniscus repair. ). No: Pacemaker Amputation: No Fractures: No - *Social History Smoking Status: Never smoker Alcohol Intake: current Alcohol Intake Frequency:: holidays/special occasions only Substance Use Type: denies use *Occupational Status:: unemployed Housing: house Household Members: spouse, children *Travel in the last 8 weeks: None - Psychiatric History Pschychiatric History:: Reports:: Anxiety Family Hx:: Cancer, Hypertension Review of Systems - Review of Systems Review of Systems General: No recent weight changes, no fever, no sleep disturbances Respiratory: No cough, no shortness of air, no recurring pulmonary infections Cardiovascular/peripheral vascular: No chest pain, no palpitations, no edema, no shortness of breath Gastrointestinal: No new onset i
== END ==
PROVIDERS: Visit Provider Clinical Nurse Specialist Family Health
DX: M51.14 Intervertebral disc disorders with radiculopathy, thoracic region (principal)
CPT/HCPCS: 99202; G0463

== ENCOUNTER → 2021-08-17 13:56 | Outpatient (CLI) | payer MEDICAID, SELFPAY ==
[2021-08-17 17:46] LABS: Basophils # 0.1 K/mm3 (0-0.2); Basophils % 1.5 % (0.1-2.0); Eosinophils # 0.2 K/mm3 (0.0-0.4); Eosinophils % 3.6 % (0.1-12.0); Hematocrit 49.1 % (42.0-52.0); Hemoglobin 16.6 g/dL (14.1-18.0); Lymphocytes # 1.9 K/mm3 (0.7-4.5); Lymphocytes % 28.8 % (10-50); Mean Corpuscular HGB Conc 33.8 g/dL (31.8-35.4); Mean Corpuscular Volume 97.9 fl (80-94); Mean Platelet Volume 9.3 fl (7.4-10.4); Monocytes # 0.5 K/mm3 (0.1-1.0); Monocytes % 7.5 % (1.7-9.3); Neutrophils # 3.9 K/mm3 (1.8-7.8); Neutrophils % 58.6 % (37.0-80.0); Platelet Count 306 K/mm3 (142-424); Red Blood Count 5.02 M/mm3 (4.60-6.20); Red Cell Distribution Width 13.8 % (11.5-17.5); White Blood Count 6.7 K/mm3 (4.8-10.8)
[2021-08-17 17:53] LABS: Alanine Aminotransferase 50 U/L (12-78); Albumin Level 4.6 g/dl (3.5-5.0); Albumin/Globulin Ratio 1.8 (1.1-1.8); Alkaline Phosphatase 84 U/L (38-126); Anion Gap 13.4 mEq/L (5-15); Aspartate Amino Transferase 36 U/L (17-59); Bilirubin,Total 0.2 mg/dl (0.2-1.3); Blood Urea Nitrogen 19 mg/dl (9-20); Calcium 9.7 mg/dl (8.4-10.2); Carbon Dioxide 24 mmol/L (22.0-30.0); Chloride 106 mmol/L (98-107); Chol/HDL Ratio 4.6 (1-3.5); Cholesterol 222 mg/dl (140-200); Estimated Glomerular Filt Rate 97 ml/min (>60); GFR (African American) 118 ML/MIN (>60); Globulin 2.6 g/dL (1.3-3.2); Glucose 114 mg/dl (74-100); HDL Cholesterol 48 mg/dl (40-60); Potassium 4.4 mmoL/L (3.5-5.1); Sodium 139 mmol/L (136-145); Total Protein,Serum 7.2 g/dl (6.3-8.2); Triglycerides 201 mg/dl (30-150); VLDL Cholesterol 40 mg/dL (0-40)
[2021-08-17 18:04] LABS: Direct LDL Cholesterol 130.56 mg/dL (100-129)
[2021-08-17 18:25] LABS: Thyroid Stimulating Hormone 3.16 uIU/mL (0.465-4.68)
[2021-08-17 18:44] LABS: Vitamin B12 208 pg/mL (239-931)
== END ==
PROVIDERS: PCP Physician Assistant; Visit Provider Physician Assistant
DX: Z00.00 Encounter for general adult medical examination without abnormal findings (principal); E55.9 Vitamin D deficiency, unspecified; Z79.899 Other long term (current) drug therapy
CPT/HCPCS: 80053; 80061; 82306; 82607; 84443; 85025

== ENCOUNTER → 2021-08-25 08:12 | Outpatient (CLI) | payer MEDICAID, SELFPAY ==
--- NOTE | 2021-08-25 08:12 | US_ITS ---
FINAL REPORT CLINICAL HISTORY: RUQ pain, pale stools FINDINGS: Sonographic images of the right upper quadrant were obtained. The pancreas is partially obscured.The liver has increased echogenicity.The gallbladder appears normal without evidence of gallstones.There is no evidence of biliary ductal dilatation.The common duct measures 2 mm. Limited images of the right kidney are unremarkable. IMPRESSION: Fatty liver. Reviewed, Interpreted and Dictated by Kolby Eaton III, MD Transcribed by John Dillard Authenticated by Kolby Eaton III, MD on 08/25/2021 09:52:11 AM [facility]
== END ==
PROVIDERS: PCP Physician Assistant; Visit Provider Physician Assistant
DX: R10.11 Right upper quadrant pain (principal)
CPT/HCPCS: 76705

== ENCOUNTER → 2022-03-28 16:07 | Outpatient (CLI) | payer MEDICAID, SELFPAY ==
[2022-03-28 14:37] LABS: Basophils # 0.1 K/mm3 (0-0.2); Basophils % 1.2 % (0.1-2.0); Eosinophils # 0.2 K/mm3 (0.0-0.4); Eosinophils % 3.6 % (0.1-12.0); Hematocrit 45.3 % (42.0-52.0); Hemoglobin 15.2 g/dL (14.1-18.0); Lymphocytes # 2.2 K/mm3 (0.7-4.5); Lymphocytes % 39.8 % (10-50); Mean Corpuscular HGB Conc 33.6 g/dL (31.8-35.4); Mean Corpuscular Hemoglobin 32.3 pg (27.0-31.2); Mean Corpuscular Volume 96.2 fl (80-94); Mean Platelet Volume 9.1 fl (7.4-10.4); Monocytes # 0.4 K/mm3 (0.1-1.0); Monocytes % 7.6 % (1.7-9.3); Neutrophils # 2.6 K/mm3 (1.8-7.8); Neutrophils % 47.7 % (37.0-80.0); Platelet Count 352 K/mm3 (142-424); Red Blood Count 4.71 M/mm3 (4.60-6.20); Red Cell Distribution Width 13.2 % (11.5-17.5); White Blood Count 5.5 K/mm3 (4.8-10.8)
[2022-03-28 14:57] LABS: Alanine Aminotransferase 56 U/L (12-78); Albumin Level 4.6 g/dl (3.5-5.0); Albumin/Globulin Ratio 1.8 (1.1-1.8); Alkaline Phosphatase 87 U/L (38-126); Anion Gap 13.5 mEq/L (5-15); Aspartate Amino Transferase 44 U/L (17-59); Bilirubin,Total 0.8 mg/dl (0.2-1.3); Blood Urea Nitrogen 18 mg/dl (9-20); Carbon Dioxide 26 mmol/L (22.0-30.0); Chloride 105 mmol/L (98-107); Estimated Glomerular Filt Rate 86 ml/min (>60); GFR (African American) 103 ML/MIN (>60); Globulin 2.6 g/dL (1.3-3.2); Glucose 114 mg/dl (74-100); Potassium 4.5 mmoL/L (3.5-5.1); Sodium 140 mmol/L (136-145); Total Protein,Serum 7.2 g/dl (6.3-8.2)
[2022-03-28 15:28] LABS: Thyroid Stimulating Hormone 3.35 uIU/mL (0.465-4.68)
[2022-03-28 15:47] LABS: Vitamin B12 516 pg/mL (239-931)
[2022-03-28 17:28] LABS: Hemoglobin A1C 5.4 % (4.0-6.0)
[2022-03-28 17:43] LABS: 25-OH Vitamin D, Total 27.4 ng/mL (30-100)
[2022-03-30 10:13] LABS: Testosterone,Total 167 ng/dL (264-916)
== END ==
PROVIDERS: PCP Physician Assistant; Visit Provider Physician Assistant
DX: R73.09 Other abnormal glucose (principal); E55.9 Vitamin D deficiency, unspecified; E53.8 Deficiency of other specified B group vitamins; E29.1 Testicular hypofunction
CPT/HCPCS: 80053; 82306; 82607; 83036; 84403; 84443; 85025

== ENCOUNTER → 2022-04-23 12:55 | Outpatient (CLI) | payer MEDICAID, SELFPAY ==
[2022-04-23 14:00] VITALS: PULSE 74; PULSE 75
== END ==
PROVIDERS: PCP Physician Assistant; Visit Provider Physician Assistant
DX: R06.02 Shortness of breath (principal); Z86.16 Personal history of COVID-19
CPT/HCPCS: 94060; 94640; 94727; 94729

== ENCOUNTER → 2022-05-31 08:33 | Outpatient (CLI) | payer MEDICAID, SELFPAY ==
[2022-05-31 13:46] LABS: MANUAL DIFFERENTIAL MANUAL DIFFERENTIAL (MANUAL DIFF)
[2022-05-31 14:23] LABS: Basophils # 0.1 K/mm3 (0-0.2); Basophils % 1.5 % (0.1-2.0); Eosinophils # 0.2 K/mm3 (0.0-0.4); Eosinophils % 3.1 % (0.1-12.0); Hematocrit 49.4 % (42.0-52.0); Hemoglobin 16.1 g/dL (14.1-18.0); Lymphocytes # 2.2 K/mm3 (0.7-4.5); Lymphocytes % 31.8 % (10-50); Mean Corpuscular HGB Conc 32.7 g/dL (31.8-35.4); Mean Corpuscular Hemoglobin 31.8 pg (27.0-31.2); Mean Corpuscular Volume 97.5 fl (80-94); Mean Platelet Volume 9.1 fl (7.4-10.4); Monocytes # 0.5 K/mm3 (0.1-1.0); Monocytes % 7.2 % (1.7-9.3); Neutrophils # 3.9 K/mm3 (1.8-7.8); Neutrophils % 56.5 % (37.0-80.0); Platelet Count 361 K/mm3 (142-424); Red Blood Count 5.07 M/mm3 (4.60-6.20); Red Cell Distribution Width 13.2 % (11.5-17.5); White Blood Count 6.9 K/mm3 (4.8-10.8)
[2022-05-31 14:54] LABS: Eosinophils % 3 % (0-3); Lymphocytes % 31 % (10-50); Monocytes % 7 % (2-9); Neutrophils % 59 % (42-76); Total Cells Counted 100
[2022-05-31 14:55] LABS: RBC Morphology Normal
[2022-05-31 14:56] LABS: Platelet Estimate Normal
[2022-05-31 15:41] LABS: Prostate Specific Ag Screen 0.5 ng/ml (0.0-4.0)
[2022-06-02 08:33] LABS: FSH 5.6 mIU/mL (1.5-12.4); LH 6.3 mIU/mL (1.7-8.6); Prolactin 17.8 ng/mL (4.0-15.2); Testosterone,Total 179 ng/dL (264-916)
== END ==
PROVIDERS: PCP Physician Assistant; Visit Provider Physician Assistant
DX: E34.9 Endocrine disorder, unspecified (principal); E29.1 Testicular hypofunction; Z12.5 Encounter for screening for malignant neoplasm of prostate
CPT/HCPCS: 83001; 83002; 84146; 84403; 85007; 85014; 85018; 85048; 85049; G0103

== ENCOUNTER → 2022-12-03 13:09 | Outpatient (CLI) | payer MEDICAID, SELFPAY ==
[2022-12-03 12:56] LABS: Basophils % 0.4 % (0.1-2.0); Eosinophils # 0.2 K/mm3 (0.0-0.4); Eosinophils % 2.5 % (0.1-12.0); Hematocrit 45.5 % (42.0-52.0); Hemoglobin 15.4 g/dL (14.1-18.0); Lymphocytes # 1.6 K/mm3 (0.7-4.5); Lymphocytes % 27.4 % (10-50); Mean Corpuscular Volume 94.3 fl (80-94); Mean Platelet Volume 8.5 fl (7.4-10.4); Monocytes # 0.4 K/mm3 (0.1-1.0); Monocytes % 6.6 % (1.7-9.3); Neutrophils # 3.7 K/mm3 (1.8-7.8); Neutrophils % 63.1 % (37.0-80.0); Platelet Count 314 K/mm3 (142-424); Red Blood Count 4.82 M/mm3 (4.60-6.20); Red Cell Distribution Width 13.5 % (11.5-17.5); White Blood Count 5.9 K/mm3 (4.8-10.8)
[2022-12-03 13:50] LABS: Alanine Aminotransferase 34 U/L (12-78); Albumin Level 4.5 g/dl (3.5-5.0); Albumin/Globulin Ratio 1.6 (1.1-1.8); Alkaline Phosphatase 87 U/L (38-126); Anion Gap 16.1 mEq/L (5-15); Aspartate Amino Transferase 30 U/L (17-59); Bilirubin,Total 0.6 mg/dl (0.2-1.3); Blood Urea Nitrogen 16 mg/dl (9-20); Calcium 9.1 mg/dl (8.4-10.2); Carbon Dioxide 25 mmol/L (22.0-30.0); Chloride 104 mmol/L (98-107); Chol/HDL Ratio 4.7 (1-3.5); Cholesterol 229 mg/dl (140-200); Estimated Glomerular Filt Rate 111 ml/min (>60); GFR (African American) 134 ML/MIN (>60); Globulin 2.8 g/dL (1.3-3.2); Glucose 101 mg/dl (74-100); HDL Cholesterol 49 mg/dl (40-60); Potassium 4.1 mmoL/L (3.5-5.1); Sodium 141 mmol/L (136-145); Total Protein,Serum 7.3 g/dl (6.3-8.2); Triglycerides 129 mg/dl (30-150); VLDL Cholesterol 26 mg/dL (0-40)
[2022-12-03 14:02] LABS: Direct LDL Cholesterol 138.63 mg/dL (100-129)
[2022-12-03 14:07] LABS: 25-OH Vitamin D, Total 40.7 ng/mL (30-100)
[2022-12-03 14:22] LABS: Thyroid Stimulating Hormone 3.12 uIU/mL (0.465-4.68)
[2022-12-03 14:41] LABS: Vitamin B12 915 pg/mL (239-931)
[2022-12-04 08:18] LABS: Testosterone,Total 203 ng/dL (264-916)
== END ==
PROVIDERS: PCP Physician Assistant; Visit Provider Physician Assistant
DX: F41.9 Anxiety disorder, unspecified (principal); D51.9 Vitamin B12 deficiency anemia, unspecified; E55.9 Vitamin D deficiency, unspecified; R79.89 Other specified abnormal findings of blood chemistry; E66.9 Obesity, unspecified; Z68.32 Body mass index [BMI] 32.0-32.9, adult; E29.1 Testicular hypofunction; Z79.899 Other long term (current) drug therapy
CPT/HCPCS: 80053; 80061; 82306; 82607; 84403; 84443; 85025

== ENCOUNTER 2023-05-23 13:16 | Emergency (ER) | payer MEDICAID, SELFPAY ==
[2023-05-23 13:30] VITALS: BP 141/89; PULSE 101; RESP 18; TEMP 36.8; O2SAT 96; BMI 33.8
--- NOTE | 2023-05-23 13:31 | EXP.UTC ---
Discharge Plan Disposition Patient Disposition: Home, Self-Care Condition: Good Prescriptions Prescriptions: New methylprednisolone 4 mg Tablets,Dose Pack 4 mg PO DIRECTED 6 Days Qty: 21 0RF Rx Instructions: Take 1 pack as directed for 6 days amoxicillin-pot clavulanate 875-125 mg Tablet 1 tab PO Q12H Qty: 20 0RF No Action (DME) BD Luer-Gricel Syringe 3 mL 25 gauge x 1 syringe See Rx Instructions .ROUTE .COMPLEX Qty: 10 0RF Dose Instruction: FOR VITAMIN B12 DEFICIENCY ; TO USE FOR B-12 INJECTION Rx Instructions: FOR VITAMIN B12 DEFICIENCY ; TO USE FOR B-12 INJECTION cyanocobalamin (vitamin B-12) 1,000 mcg/mL solution 1,000 mcg SQ ONCE cholecalciferol (vitamin D3) 25 mcg (1,000 unit) capsule 25 mcg PO DAILY desvenlafaxine succinate 50 mg tablet extended release 24 hr 50 mg PO DAILY Referrals Follow up/Referrals: Elsie Boyle PA [Primary Care Provider] - See instructions Activity Restrictions/Add. Instructions Additional Instructions/Restrictions: Drink plenty of fluids. Take tylenol or ibuprofen for pain or fever. Take the medications as directed. Follow up with your regular doctor. GO TO THE ER FOR ANY WORSENING SYMPTOMS Clinical Impressions Clinical Impression: Otitis media Instructions Patient Instructions: Middle Ear Infection, Methylprednisolone, Amoxicillin and Clavulanic Acid Discharge ED Provider: Hola Granados [facility] General Stated complaint: Pain in R ear Time Seen by Provider: 05/23/23 13:31 History of Present Illness Provider Complaint: He states that for the past 4 days he has had bilateral ear pain. Related Data Home Medications Medication Instructions Recorded Confirmed cholecalciferol (vitamin D3) 25 25 mcg PO DAILY 05/23/23 05/23/23 mcg (1,000 unit) capsule cyanocobalamin (vitamin B-12) 1,000 mcg SQ ONCE 05/23/23 05/23/23 1,000 mcg/mL injection solution desvenlafaxine succinate 50 mg 50 mg PO DAILY 05/23/23 05/23/23 tablet,extended release 24 hr Previous Rx's Medication Instructions Recorded syringe with needle 3 mL 25 gauge #10 ea 05/07/23 x 1 (BD Luer-Gricel Syringe) amoxicillin 875 mg-potassium 1 tab PO Q12H #20 tabs 05/23/23 clavulanate 125 mg tablet methylprednisolone 4 mg tablets in 4 mg PO DIRECTED 6 days #21 tabs 05/23/23 a dose pack Allergies Allergy/AdvReac Type Severity Reaction Status Date / Time No Known Allergies Allergy Verified 03/07/23 08:41 [facility] Disclaimer: The information contained in this section may have been updated after the patient was seen, as this information can be updated by other users. Medical History Anxiety Social History Smoking Status: Never smoker alcohol intake: current substance use type: denies use current occupational status: unemployed Travel in the last 8 weeks: None household members: spouse and children housing: house ROS Obtained: Yes All systems reviewed & no additional complaints except as documented Constitutional Constitutional: Denies chills, Reports fever(s) and Reports poor appetite Eyes Eyes: Denies eye discharge ENT Ears, Nose, Mouth, and Throat: Denies ear discharge, Reports otalgia, Denies hearing loss, Denies sinus pain and Reports sore throat Cardiovascular Cardiovascular: Denies chest pain and Denies dyspnea Respiratory Respiratory: Denies chest congestion, Reports cough and Denies dyspnea Gastrointestinal Gastrointestingal: Denies abdominal pain, diarrhea, nausea or vomiting Musculoskeletal Musculoskeletal: Denies arthralgias Integumentary/Breasts Skin/Breast: Denies rash Physical Exam General General appearance: alert and in no apparent distress Head Head exam: atraumatic, normocephalic and normal inspection Eye Eye exam: Present normal appearance; Absent PERRL or EOMI ENT ENT exam: Present mucous membranes moist and normal external ear exam Expanded ENT Exam TM/Canal exam: Bilateral TM: erythema, bulging and effusion Nose exam: Absent sinus tenderness Nasal speculum exam: Bilateral: normal Mouth exam: Present normal external inspection and other; Absent drooling Teeth exam: Present normal inspection Throat exam: Present tonsillar erythema and tonsillomegaly Neck Neck exam: Present normal inspection, full ROM and trachea midline; Absent tenderness, meningismus or lymphadenopathy Chest Chest inspection: Present normal inspection and symmetric chest wall rise; Absent tenderness Respiratory Respiratory exam: Present normal lung sounds bilaterally; Absent respiratory distress, wheezes or stridor Cardiovascular Cardiovascular exam: Present regular rate, normal rhythm and normal heart sounds; Absent tachycardia or irregular rhythm Abdominal Exam Abdominal exam: Present soft and normal bowel sounds; Absent distention, tenderness, guarding, rebound or rigidity Extremities Exam Extremities exam: Present normal inspection and normal capillary refill; Absent tenderness, joint swelling or calf tenderness Back Exam Back exam: Present normal inspection and full ROM; Absent tenderness, CVA tenderness (R) or CVA tenderness (L) Neurological Exam Neurological exam: Present alert, oriented X3, CN II-XII intact, normal gait and reflexes normal; Absent motor sensory deficit Psychiatric Psychiatric exam: Present normal affect and normal mood Skin Skin exam: Present warm, dry, intact and normal color Lymphatic Lymphatic Findings: no adenopathy Medical Decision Making Medical Records Medical records reviewed: No I reviewed the patient's medical records. Joe Inquiry Pt receiving controlled substance: No
[2023-05-23 13:58] VITALS: BP 141/89; PULSE 101; RESP 18; TEMP 36.8; O2SAT 96
== END 2023-05-23 14:01 | disposition home or self-care (01) ==
PROVIDERS: Emergency Provider Nurse Practitioner Family; PCP Physician Assistant
DX: H66.93 Otitis media, unspecified, bilateral (principal); R50.9 Fever, unspecified
CPT/HCPCS: 99204; 99212; G0463

== ENCOUNTER 2023-06-01 12:58 | Emergency (ER) | payer MEDICAID, SELFPAY ==
[2023-06-01 14:35] VITALS: BP 139/75; PULSE 98; RESP 18; TEMP 36.8; O2SAT 98; BMI 47.9
--- NOTE | 2023-06-01 15:07 | EXP.UTC ---
Discharge Plan Disposition Patient Disposition: Home, Self-Care Condition: Good Prescriptions Prescriptions: New cefdinir 300 mg capsule 300 mg PO BID Qty: 20 0RF fluticasone propionate [fluticasone propionate] 50 mcg/actuation spray,suspension 1 spray intranasal DAILY Qty: 9.9 0RF No Action (DME) BD Luer-Gricel Syringe 3 mL 25 gauge x 1 syringe See Rx Instructions .ROUTE .COMPLEX Qty: 10 0RF Dose Instruction: FOR VITAMIN B12 DEFICIENCY ; TO USE FOR B-12 INJECTION Rx Instructions: FOR VITAMIN B12 DEFICIENCY ; TO USE FOR B-12 INJECTION cyanocobalamin (vitamin B-12) 1,000 mcg/mL solution 1,000 mcg SQ ONCE cholecalciferol (vitamin D3) 25 mcg (1,000 unit) capsule 25 mcg PO DAILY desvenlafaxine succinate 50 mg tablet extended release 24 hr 50 mg PO DAILY Referrals Follow up/Referrals: Elsie Boyle PA [Primary Care Provider] - See instructions Activity Restrictions/Add. Instructions Additional Instructions/Restrictions: Start antibiotic as soon as possible and be sure to take as ordered for full length of time even though he should start feeling better in 24-48 hours. Tylenol or Motrin as needed for pain or fever Encourage fluids, water, Gatorade, Powerade, Pedialyte if /toddler/child Warm compresses often helps when placed over ear Return immediately for new or worsening symptoms no noticeable improvement in 48-72 hours and in 10-14 days to ensure the ears are return to baseline. Follow-up with primary care Clinical Impressions Clinical Impression: Otitis media Qualifiers: Otitis media type: suppurative Chronicity: acute Laterality: left Recurrence: non-recurrent Spontaneous tympanic membrane rupture: without spontaneous rupture Qualified Code(s): H66.002 - Acute suppurative otitis media without spontaneous rupture of ear drum, left ear Instructions Patient Instructions: Middle Ear Infection, Middle Ear Infections (Alternative Therapy) Discharge ED Provider: Katharina ([facility])Parminder [facility] [place] General Stated complaint: right ear pain Mode of Arrival: Ambulatory Source of Information: Patient Limitations: No Limitations Time Seen by Provider: 06/01/23 15:07 Description of Symptoms (Recalled from Triage Doc. by RN): Pt stated that for the last 3 weeks he has been dealing with for 3 weeks. He was seen and put on abx and steroids just finished yesterday. He stated that it has gotten somewhat better, but it now hurts in right ear when he swallows. HEENT Symptoms (Recalled from RN notes): Yes Resp Symptoms (Recalled from RN notes): No Skin Symptoms (Recalled from RN notes): No MS Symptoms (Recalled from RN notes): No Functional Status (Recalled from RN notes): n/a History of Present Illness Provider Complaint: 33 yr old male presents for pain in rt ear. pt states for the last 3 weeks he has been dealing with for 3 weeks. He was seen and put on abx and steroids just finished yesterday. He stated that it has gotten somewhat better, but it now hurts in right ear when he swallows. Related Data Home Medications Medication Instructions Recorded Confirmed cholecalciferol (vitamin D3) 25 25 mcg PO DAILY 05/23/23 06/01/23 mcg (1,000 unit) capsule cyanocobalamin (vitamin B-12) 1,000 mcg SQ ONCE 05/23/23 06/01/23 1,000 mcg/mL injection solution desvenlafaxine succinate 50 mg 50 mg PO DAILY 05/23/23 06/01/23 tablet,extended release 24 hr Previous Rx's Medication Instructions Recorded syringe with needle 3 mL 25 gauge #10 ea 05/07/23 x 1 (BD Luer-Gricel Syringe) cefdinir 300 mg capsule 300 mg PO BID #20 caps 06/01/23 fluticasone propionate 50 1 spray intranasal DAILY #9.9 mL 06/01/23 mcg/actuation nasal spray,suspension Allergies Allergy/AdvReac Type Severity Reaction Status Date / Time No Known Allergies Allergy Verified 06/01/23 14:48 Worker's Comp Is this a Worker's Comp case?: No [facility] Disclaimer: The information contained in this section may have been updated after the patient was seen, as this information can be updated by other users. Medical History , MINING CAPTAIN) Anxiety Social History , MINING CAPTAIN) Smoking Status: Never smoker alcohol intake: current substance use type: denies use current occupational status: unemployed Travel in the last 8 weeks: None household members: spouse and children housing: house ROS Obtained: Yes All systems reviewed & no additional complaints except as documented Constitutional Constitutional: Reports system reviewed and no additional complaints, except as documented and Reports as per HPI Eyes Eyes: Reports system reviewed and no additional complaints, except as documented ENT Ears, Nose, Mouth, and Throat: Reports system reviewed and no additional complaints, except as documented, Reports as per HPI and Reports otalgia Cardiovascular Cardiovascular: Reports system reviewed and no additional complaints, except as documented Respiratory Respiratory: Reports system reviewed and no additional complaints, except as documented Gastrointestinal Gastrointestingal: Reports system reviewed and no additional complaints, except as documented Neurologic Neurologic: Reports system reviewed and no additional complaints, except as documented Allergic/Immunologic Allergic/Immunologic: Reports system reviewed and no additional complaints, except as documented Physical Exam General General appearance: alert and in no apparent distress Head Head exam: atraumatic Eye Eye exam: Present normal appearance and PERRL ENT ENT exam: Present normal oropharynx and mucous membranes moist Expanded ENT Exam TM/Canal exam: Right TM: erythema, bulging, effusion and loss of landmarks Respiratory Respiratory exam: Present normal lung sounds bilaterally Cardiovascular Cardiovascular exam: Present regular rate and normal rhythm Neurological Exam Neurological exam: Present alert and oriented X3 Medical Decision Making Medical Records Medical records reviewed: Yes I reviewed the patient's medical records. Joe Inquiry Pt receiving controlled substance: No Joe was queried for this patient: No Vital Signs: 06/01/23 14:35 Temperature 98.3 F Temperature Source Oral Pulse Rate [Right Radial] 98 H Respiratory Rate 18 Blood Pressure [Right Arm] 139/75 Blood Pressure Mean [Right Arm] 96 Blood Pressure Source [Right Arm] Automatic Cuff Blood Pressure Position [Right Arm] Sitting 02 Sat by Pulse Oximetry 98 Oxygen Delivery Method Room Air Lab Data Lab results reviewed: Yes I reviewed the patient's lab results.
[2023-06-01 15:20] VITALS: BP 139/75; PULSE 98; RESP 18; TEMP 36.8; O2SAT 98
== END 2023-06-01 15:22 | disposition home or self-care (01) ==
PROVIDERS: Emergency Provider Nurse Practitioner Family; PCP Physician Assistant
DX: H66.002 Acute suppurative otitis media without spontaneous rupture of ear drum, left ear (principal)
CPT/HCPCS: 99212; 99214; G0463

== ENCOUNTER 2023-06-19 19:52 | Outpatient (CLI) | payer MEDICAID, SELFPAY ==
[2023-06-19 19:22] LABS: Alanine Aminotransferase 51 U/L (12-78); Albumin Level 4.6 g/dl (3.5-5.0); Albumin/Globulin Ratio 1.9 (1.1-1.8); Alkaline Phosphatase 91 U/L (38-126); Anion Gap 18.3 mEq/L (5-15); Aspartate Amino Transferase 43 U/L (17-59); Bilirubin,Total 0.5 mg/dl (0.2-1.3); Blood Urea Nitrogen 12 mg/dl (9-20); Calcium 9.4 mg/dl (8.4-10.2); Carbon Dioxide 26 mmol/L (22.0-30.0); Chloride 103 mmol/L (98-107); Chol/HDL Ratio 5.4 (1-3.5); Cholesterol 190 mg/dl (140-200); Estimated Glomerular Filt Rate 85 ml/min (>60); GFR (African American) 103 ML/MIN (>60); Globulin 2.4 g/dL (1.3-3.2); Glucose 77 mg/dl (74-100); HDL Cholesterol 35 mg/dl (40-60); Potassium 4.3 mmoL/L (3.5-5.1); Sodium 143 mmol/L (136-145); Triglycerides 130 mg/dl (30-150); VLDL Cholesterol 26 mg/dL (0-40)
[2023-06-19 19:33] LABS: Direct LDL Cholesterol 116.15 mg/dL (100-129)
[2023-06-19 19:43] LABS: Basophils # 0.1 K/mm3 (0-0.2); Basophils % 1.1 % (0.1-2.0); Eosinophils # 0.2 K/mm3 (0.0-0.4); Eosinophils % 2.7 % (0.1-12.0); Hematocrit 47.7 % (42.0-52.0); Lymphocytes # 1.6 K/mm3 (0.7-4.5); Lymphocytes % 29.7 % (10-50); Mean Corpuscular HGB Conc 33.5 g/dL (31.8-35.4); Mean Corpuscular Volume 101.6 fl (80-94); Mean Platelet Volume 9.6 fl (7.4-10.4); Monocytes # 0.3 K/mm3 (0.1-1.0); Monocytes % 5.7 % (1.7-9.3); Neutrophils # 3.3 K/mm3 (1.8-7.8); Neutrophils % 60.7 % (37.0-80.0); Platelet Count 261 K/mm3 (142-424); Red Cell Distribution Width 13.8 % (11.5-17.5); White Blood Count 5.4 K/mm3 (4.8-10.8)
[2023-06-19 19:52] LABS: Thyroid Stimulating Hormone 1.54 uIU/mL (0.465-4.68)
[2023-06-19 19:53] LABS: 25-OH Vitamin D, Total 37.2 ng/mL (30-100)
[2023-06-21 09:13] LABS: Testosterone,Total 148 ng/dL (264-916)
== END 2023-06-19 23:59 ==
LOC: LAB.DROPOF 19:53
PROVIDERS: PCP Physician Assistant; Visit Provider Physician Assistant
DX: E55.9 Vitamin D deficiency, unspecified (principal); R79.89 Other specified abnormal findings of blood chemistry; Z68.33 Body mass index [BMI] 33.0-33.9, adult
CPT/HCPCS: 80053; 80061; 82306; 84403; 84443; 85025

== ENCOUNTER 2023-07-15 09:42 | Outpatient (CLI) | payer MEDICAID, SELFPAY ==
[2023-07-15 10:15] LABS: Basophils # 0.1 K/mm3 (0-0.2); Basophils % 1.2 % (0.1-2.0); Eosinophils # 0.2 K/mm3 (0.0-0.4); Eosinophils % 3.9 % (0.1-12.0); Hematocrit 51.5 % (42.0-52.0); Hemoglobin 17.2 g/dL (14.1-18.0); Lymphocytes # 1.5 K/mm3 (0.7-4.5); Lymphocytes % 27.6 % (10-50); Mean Corpuscular HGB Conc 33.4 g/dL (31.8-35.4); Mean Corpuscular Hemoglobin 33.4 pg (27.0-31.2); Mean Corpuscular Volume 99.9 fl (80-94); Mean Platelet Volume 8.3 fl (7.4-10.4); Monocytes # 0.4 K/mm3 (0.1-1.0); Monocytes % 6.3 % (1.7-9.3); Neutrophils # 3.4 K/mm3 (1.8-7.8); Neutrophils % 61.1 % (37.0-80.0); Platelet Count 259 K/mm3 (142-424); Red Blood Count 5.16 M/mm3 (4.60-6.20); White Blood Count 5.5 K/mm3 (4.8-10.8)
[2023-07-15 12:27] LABS: Thyroid Stimulating Hormone 2.53 uIU/mL (0.465-4.68)
[2023-07-16 07:35] LABS: Sex Hormone Binding Globulin 21.6 nmol/L (16.5-55.9)
[2023-07-16 08:26] LABS: FSH 4.7 mIU/mL (1.5-12.4); LH 4.3 mIU/mL (1.7-8.6); Prolactin 15.1 ng/mL (3.9-22.7)
[2023-07-19 11:17] LABS: Free Testosterone (Direct) 6.4 pg/mL (8.7-25.1); Testosterone, Total, LC/MS 195.6 ng/dL (264.0-916.0)
== END 2023-07-15 23:59 ==
LOC: LAB 09:43
PROVIDERS: PCP Physician Assistant; Visit Provider Urology
DX: R79.89 Other specified abnormal findings of blood chemistry (principal); E55.9 Vitamin D deficiency, unspecified; Z79.899 Other long term (current) drug therapy
CPT/HCPCS: 36415; 83001; 83002; 84146; 84270; 84443; 85025

== ENCOUNTER 2023-08-26 12:59 | Outpatient (CLI) | payer MEDICAID, SELFPAY ==
[2023-08-26 13:19] LABS: Basophils % 0.6 % (0.1-2.0); Eosinophils # 0.2 K/mm3 (0.0-0.4); Hematocrit 53.6 % (42.0-52.0); Hemoglobin 17.8 g/dL (14.1-18.0); Lymphocytes % 24.4 % (10-50); Mean Corpuscular HGB Conc 33.2 g/dL (31.8-35.4); Mean Corpuscular Hemoglobin 32.9 pg (27.0-31.2); Mean Corpuscular Volume 99.3 fl (80-94); Monocytes # 0.5 K/mm3 (0.1-1.0); Monocytes % 6.5 % (1.7-9.3); Neutrophils # 5.3 K/mm3 (1.8-7.8); Neutrophils % 66.5 % (37.0-80.0); Platelet Count 280 K/mm3 (142-424); Red Cell Distribution Width 13.6 % (11.5-17.5)
[2023-08-28 10:50] LABS: Sex Hormone Binding Globulin 20.4 nmol/L (16.5-55.9)
[2023-08-28 13:34] LABS: Testosterone,Total 220 ng/dL (264-916)
== END 2023-08-26 23:59 | disposition home or self-care (01) ==
PROVIDERS: PCP Physician Assistant; Visit Provider Urology
DX: R68.82 Decreased libido (principal); R53.83 Other fatigue
CPT/HCPCS: 36415; 84270; 84403; 85025

== ENCOUNTER 2023-11-25 12:18 | Outpatient (CLI) | payer MEDICAID, SELFPAY ==
[2023-11-25 12:44] LABS: Basophils # 0.1 K/mm3 (0-0.2); Basophils % 0.8 % (0.1-2.0); Eosinophils # 0.1 K/mm3 (0.0-0.4); Eosinophils % 1.2 % (0.1-12.0); Hematocrit 52.5 % (42.0-52.0); Hemoglobin 16.9 g/dL (14.1-18.0); Lymphocytes # 1.7 K/mm3 (0.7-4.5); Lymphocytes % 25.5 % (10-50); Mean Corpuscular HGB Conc 32.3 g/dL (31.8-35.4); Mean Corpuscular Hemoglobin 32.3 pg (27.0-31.2); Mean Platelet Volume 8.2 fl (7.4-10.4); Monocytes # 0.4 K/mm3 (0.1-1.0); Monocytes % 5.3 % (1.7-9.3); Neutrophils # 4.6 K/mm3 (1.8-7.8); Neutrophils % 67.2 % (37.0-80.0); Platelet Count 314 K/mm3 (142-424); Red Blood Count 5.25 M/mm3 (4.60-6.20); Red Cell Distribution Width 13.7 % (11.5-17.5); White Blood Count 6.8 K/mm3 (4.8-10.8)
[2023-11-26 08:48] LABS: Sex Hormone Binding Globulin 21.1 nmol/L (16.5-55.9); Testosterone,Total 143 ng/dL (264-916)
== END 2023-11-25 23:59 | disposition home or self-care (01) ==
LOC: LAB 12:19
PROVIDERS: PCP Physician Assistant; Visit Provider Urology
DX: R79.89 Other specified abnormal findings of blood chemistry (principal)
CPT/HCPCS: 36415; 84270; 84403; 85025

== ENCOUNTER → 2024-01-22 07:01 | Outpatient (CLI) | payer MEDICAID, SELFPAY | LOC: SL 07:01 | PROVIDERS: PCP Physician Assistant; Visit Provider Physician Assistant | DX: G47.33 Obstructive sleep apnea (adult) (pediatric) (principal); R53.83 Other fatigue | CPT/HCPCS: G0399 ==

== ENCOUNTER 2024-02-24 11:35 | Outpatient (CLI) | payer MEDICAID, SELFPAY ==
[2024-02-24 12:20] LABS: Basophils # 0.1 K/mm3 (0-0.2); Eosinophils # 0.2 K/mm3 (0.0-0.4); Eosinophils % 2.3 % (0.1-12.0); Hematocrit 47.3 % (42.0-52.0); Hemoglobin 17.1 g/dL (14.1-18.0); Lymphocytes # 2.1 K/mm3 (0.7-4.5); Lymphocytes % 32.7 % (10-50); Mean Corpuscular HGB Conc 36.1 g/dL (31.8-35.4); Mean Corpuscular Hemoglobin 33.1 pg (27.0-31.2); Mean Corpuscular Volume 91.8 fl (80-94); Mean Platelet Volume 7.8 fl (7.4-10.4); Monocytes # 0.4 K/mm3 (0.1-1.0); Monocytes % 5.7 % (1.7-9.3); Neutrophils # 3.8 K/mm3 (1.8-7.8); Neutrophils % 58.2 % (37.0-80.0); Platelet Count 280 K/mm3 (142-424); Red Blood Count 5.15 M/mm3 (4.60-6.20); Red Cell Distribution Width 13.2 % (11.5-17.5); White Blood Count 6.5 K/mm3 (4.8-10.8)
[2024-02-25 11:23] LABS: Testosterone,Total 310 ng/dL (264-916)
== END 2024-02-24 23:59 | disposition home or self-care (01) ==
LOC: LAB 11:36
PROVIDERS: PCP Physician Assistant; Visit Provider Urology
DX: R79.89 Other specified abnormal findings of blood chemistry (principal)
CPT/HCPCS: 36415; 84270; 84403; 85025

== ENCOUNTER 2024-06-15 11:35 | Outpatient (CLI) | payer MEDICAID, SELFPAY ==
[2024-06-15 11:57] LABS: Basophils # 0.1 K/mm3 (0-0.2); Basophils % 0.7 % (0.1-2.0); Eosinophils # 0.3 K/mm3 (0.0-0.4); Eosinophils % 3.9 % (0.1-12.0); Hematocrit 45.4 % (42.0-52.0); Hemoglobin 16.2 g/dL (14.1-18.0); Lymphocytes # 2.1 K/mm3 (0.7-4.5); Lymphocytes % 31.8 % (10-50); Mean Corpuscular HGB Conc 35.7 g/dL (31.8-35.4); Mean Corpuscular Volume 89.7 fl (80-94); Monocytes # 0.5 K/mm3 (0.1-1.0); Monocytes % 7.1 % (1.7-9.3); Neutrophils # 3.8 K/mm3 (1.8-7.8); Neutrophils % 56.2 % (37.0-80.0); Platelet Count 304 K/mm3 (142-424); Red Blood Count 5.06 M/mm3 (4.60-6.20); Red Cell Distribution Width 12.1 % (11.5-17.5); White Blood Count 6.7 K/mm3 (4.8-10.8)
[2024-06-16 11:12] LABS: Sex Hormone Binding Globulin 20.2 nmol/L (16.5-55.9); Testosterone,Total 186 ng/dL (264-916)
== END 2024-06-15 23:59 | disposition home or self-care (01) ==
LOC: LAB 11:35
PROVIDERS: PCP Physician Assistant; Visit Provider Urology
DX: R79.89 Other specified abnormal findings of blood chemistry (principal); R68.82 Decreased libido
CPT/HCPCS: 36415; 84270; 84403; 85025

== ENCOUNTER 2024-07-27 11:53 | Outpatient (CLI) | payer MEDICAID, SELFPAY ==
[2024-07-27 12:23] LABS: Basophils # 0.1 K/mm3 (0-0.2); Eosinophils # 0.3 Kmm3 (0.0-0.4); Eosinophils % 4.1 % (0.1-12.0); Hematocrit 48.4 % (42.0-52.0); Lymphocytes # 1.7 K/mm3 (0.7-4.5); Lymphocytes % 28.4 % (10-50); Mean Corpuscular HGB Conc 35.1 g/dL (31.8-35.4); Mean Corpuscular Hemoglobin 32.3 pg (27.0-31.2); Mean Platelet Volume 9.7 fl (7.4-10.4); Monocytes # 0.6 K/mm3 (0.1-1.0); Monocytes % 9.6 % (1.7-9.3); Neutrophils # 3.4 K/mm3 (1.8-7.8); Neutrophils % 56.6 % (37.0-80.0); Nucleated Red Blood Cells # 0 10^3/uL; Nucleated Red Blood Cells % 0 %; Platelet Count 300 K/mm3 (142-424); Red Blood Count 5.26 M/mm3 (4.60-6.20); Red Cell Distribution Width 13.7 % (11.5-17.5); Red Cell Distribution Width-SD 45.3 fL; White Blood Count 6.1 K/mm3 (4.8-10.8)
[2024-07-28 07:14] LABS: Sex Hormone Binding Globulin 16.3 nmol/L (16.5-55.9)
[2024-07-28 08:25] LABS: Testosterone,Total 297 ng/dL (264-916)
== END 2024-07-27 23:59 | disposition home or self-care (01) ==
LOC: LAB 11:53
PROVIDERS: PCP Physician Assistant; Visit Provider Urology
DX: R68.82 Decreased libido (principal); R53.83 Other fatigue; R79.89 Other specified abnormal findings of blood chemistry
CPT/HCPCS: 36415; 84270; 84403; 85025

== ENCOUNTER 2024-10-26 14:18 | Outpatient (CLI) | payer MEDICAID, SELFPAY ==
--- OUTSIDE RECORDS SUMMARY | 2024-10-26 14:21 | XMS_ITS | Referral Summary ---
Author Organization [employer] ([place], [place], [place], [place]) Address [address] [place] [address] Care Team Providers Care Fiberglass Roving Winder Name Role Phone Elsie Boyle PA-C Primary Care Provider [phone] Kaya Mahoney MD Unavailable Allergies No known active allergies Medications sertraline (ZOLOFT) 100 MG tablet Take 1 tablet (100 mg total) by mouth in the morning. 03/28/20 22 Active cholecalcifero l, vitamin D3, 25 mcg (1,000 unit) capsule Take 1 capsule (1,000 Units total) by mouth in the morning. 05/30/19 23 Active cyanocobalamin (VITAMIN B-12) 1,000 mcg/mL injection Inject 1 mL (1,000 mcg total) intramuscularly once. Active Active Problems Problem Noted Date Diagnosed Date Hyperprolactinemia 08/06/2022 Hypotestosteronemia 08/06/2022 Immunizations Name Administration Dates Next Due Hepatitis B 05/23/2000,11/20/1999,10/23/1999 MMR VACCINE (MMR II, PRIORIX) ([id number]) 10/23/1999 Social History Tobacco Use Types Packs/Day Years Used Date Smoking Tobacco: Never Smokeless Tobacco: Current Chew Tobacco Cessation:Ready to Q uit: Not Asked Alcohol Use Standard Drinks/Week Comments Yes 0 (1 standard drink = 0.6 oz pur e alcohol) occasional Food Insecurity Answer Date Recorded Food run out past 12 months Not on file 04/08 Food did not last past 12 months Not on file 04/25/2023 Employment Answer Date Recorded Help finding and keeping a job Not on file 0 04/25/2023 Family and Community Support Answer Sunday e Recorded Help with Day to Day Activities Not on file 04/25/2023 Feeling Lonely or Isolated Not on file 04/25 Educational Attainment Answer Date Zoran rded Speak language other than Zimbabwean at home Not on file 04/25/2023 Want help with school or training Not on file 04/25/2023 Substance Use Answer Date Recorded Used prescription meds for non-medical reasons N ot on file 04/25/2023 Used illegal drugs past 12 months Not on file 04/25/2023 Sex and Gender Information Value Date Recorded Sex Assigned at Not on file Legal Sex Male 5:11 PM CDT Gender Identity Not on file Sexual Orientation Not on file Last Filed Vital Signs Vital Sign Reading Time Taken Comments Blood Pressure 128/70 08/06/2022 2:01 PM EDT Pulse 69 08/06/2022 2:01 PM EDT Temperature - - Respiratory Rate - - Oxygen Saturation 97% 08/06/2022 2:01 PM EDT Inhaled Oxygen Concentration - - Weight 121.1 kg (267 lb) 10/18/2022 1:28 PM EDT Height 193 cm (6' 4 ) 05/29/2022 1:49 PM EST Body Mass Index 32.5 05/29/2022 1:49 PM EST Plan of Treatment Not on file Insurance [facility] Care Teams Fiberglass Roving Winder Relationship Specialty Start Date End Date Elsie Boyle PA-C [address] [place] [address] PCP - General Physician Dental Sales Representative 05/29/22 Kaya Mahoney MD [address] [facility], [place] [id number] Ehr Trainer Endocrinology 08/06/22
--- OUTSIDE RECORDS SUMMARY | 2024-10-26 14:21 | XMS_ITS | Clinical Summary ---
Author Organization [employer] ([place], [place], [place], [place]) Address [address] [place] [address] Care Team Providers Care Technical Sales Associate Name Role Phone Elsie Boyle PA-C Primary Care Provider [phone] Kaya Mahoney MD Unavailable Allergies No known [...] Date Zoran rded Speak language other than German at home Not on file 04/25/2023 Want [...] 05/29/2022 1:49 PM EST Plan of Treatment Health Maintenance Due Date Last Done Comments Depression Screening (12+) 2000 HIV Screening 2003 Hepatitis C Screening 2006 DTAP/TDAP/TD VACCINES (1 - Tdap) 2007 Lipid Panel 2023 Tobacco Cessation Counseling and Screening (12+) 08/07/2023 08/06/2022 COVID-19 VACCINE (1 - 2023-2 5 season) 2023 Influenza Vaccine (#1) 2024 Pneumococcal Vaccine: 0-49 Years Aged Out No longer eligible based on patient's age to complete this topic Insurance [facility] Care Teams Technical Sales Associate Relationship Specialty Start Date End Date Elsie Boyle PA-C [address] [place] [address] PCP - General Physician Business Insight And Analytics Manager 05/29/22 Kaya Mahoney MD [address] [place] [address] [facility] 08/06/22
--- OUTSIDE RECORDS SUMMARY | 2024-10-26 14:21 | XMS_ITS | Clinical Summary ---
Author Organization [facility] yste Address [address] [place] [address] Care Team Providers Care Tire Rebuilder Name Role Phone Provider, No Known Primary Care Provider Unavail able Allergies No known active allergies Medications ibuprofen (ADVIL,MOTRIN) 800 MG tabletIndication s:Acute URI Take 1 tablet by mouth Every 8 (Eight) Hours As Needed for Mild Pain . 90 tablet 05/29/2018 Active Active Problems No known active problems Social History Tobacco Use Types Packs/Day Years Used Date Smoking Tobacco: Never Abuse Screen Answer Date Recorded Unsafe at Home or Work/School Not on file Feels Threatened by Someone? Not on file 12/2022 Does Anyone Keep You from Co ntacting Others or Doint Things Outside the Home? Not on file 01/14/2023 Physical Sign of Abuse Present Not on file 1 Housing Stability Answer Date Recorded Current Living Arrangements Not on file 12/2022 Potentially Unsafe Housing Conditions Not on armin e 01/14/2023 Family and Community Support Answer Sunday e Recorded Help with Day-to-Day Activities Not on file 01/14/2023 Lonely or Isolated Not on file 01/14/2023 Employment Answer Date Recorded Do you want help finding or keeping work or a chris b? Not on file 01/14/2023 Disabilities Answer Date Recorded Concentrating, Remembering, or Making Decisions Difficulty Not on file 01/14/2023 Doing Errands Independently Difficulty Not on fi le 01/14/2023 Education Answer Date Recorded Help with school or training? Not on file Preferred Language Not on file 01/14/2023 Sex and Gender Information Value Date Recorded Sex Assigned at Not on file Legal Sex Male 1:05 PM EDT Gender Identity Not on file Sexual Orientation Not on file Last Filed Vital Signs Vital Sign Reading Time Taken Comments Blood Pressure 132/82 05/29/2018 5:49 PM EST Pulse 92 05/29/2018 5:49 PM EST Temperature 36.6 C (97.8 F) 05/29/2018 5:49 PM EST Respiratory Rate 15 05/29/2018 5:49 PM EST Oxygen Saturation 94% 05/29/2018 5:49 PM EST Inhaled Oxygen Concentration - - Weight 116 kg (255 lb 9.6 oz) 05/29/2018 5:49 PM EST Height 198.1 cm (6' 6 ) 05/29/2018 5:49 PM EST Body Mass Index 29.54 05/29/2018 5:49 PM EST Plan of Treatment Health Maintenance Due Date Last Done Comments TDAP/TD VACCINES (1 - Tdap) 2007 ANNUAL PHYSICAL 03/09/2017 HEPATITIS C SCREENING 03/09/2017 COVID-19 Vaccine (2023-2 5 season) 2023 INFLUENZA VACCINE 01/06/2025 Pneumococcal Vaccine 0-49 Aged Out No longer eligible based on patient's age to complete this topic Insurance [employer] Care Teams Tire Rebuilder Relationship Specialty Start Date End Date Provider, No Known [facility] [place] [address] PCP - General 03/09/17
[2024-10-26 15:17] LABS: Hematocrit 50.6 % (42.0-52.0); Hemoglobin 17.9 g/dL (14.1-18.0); Immature Granulocytes % 0.1 %; Mean Corpuscular HGB Conc 35.4 g/dL (31.8-35.4); Mean Corpuscular Hemoglobin 32.2 pg (27.0-31.2); Mean Corpuscular Volume 91.0 fl (80-94); Nucleated Red Blood Cells % 0 %; Platelet Count 304 K/mm3 (142-424); Red Blood Count 5.56 M/mm3 (4.60-6.20); Red Cell Distribution Width-SD 40.9 fL; White Blood Count 7.5 K/mm3 (4.8-10.8)
[2024-10-27 12:23] LABS: Testosterone,Total 377 ng/dL (264-916)
== END 2024-10-26 23:59 | disposition home or self-care (01) ==
LOC: LAB 14:19
PROVIDERS: PCP Physician Assistant; Visit Provider Urology
DX: R79.89 Other specified abnormal findings of blood chemistry (principal); R53.83 Other fatigue
CPT/HCPCS: 36415; 84270; 84403; 85025

== ENCOUNTER 2025-02-01 13:01 | Outpatient (CLI) | payer MEDICAID, SELFPAY ==
--- OUTSIDE RECORDS SUMMARY | 2025-02-01 13:17 | XMS_ITS | Data Portability ---
Author Organization [facility] Address [address] [place] [address] Assessment No assessment recorded. Plan of Treatment Reminders Order Date Submit Date Provider Last Modified By Organization Details Last Modified Time Details Appointments None recorded. Lab testosteron e, total, serum 2024 025 [facility], [address] [place] [address], [address], 5 11:08:26 vitamin D, 25-hydroxy, total, serum 2024 025 [facility], [address] [place] [address], [address], 5 11:08:28 TSH, ultra-sensi tive, serum 2024 025 [facility], [address] [place] [address], [address], 5 11:08:27 lipid panel, serum 2024 025 [facility], [address] [place] [address], [address], 5 11:08:26 CMP, serum or plasma 2024 025 [facility], [address] [place] [address], [address], 5 11:08:25 CBC w/ auto diff 2024 025 SAMANTHA [facility]), [address] [place], [address], 5 11:08:24 vitamin B12 + folate, serum or blood 2023 024 SAMANTHA [facility] ([facility]), [address] [place], [address], 4 11:09:20 vitamin D, 25-hydroxy, total, serum 2023 024 SAMANTHA [facility] ([facility]), [address] [place], [address], 4 11:09:22 TSH, ultra-sensi tive, serum 2023 024 [place] [facility] ([facility]), [address] [place], [address], 4 11:09:21 CBC w/ auto diff 2023 024 SAMANTHA [facility] ([facility]), [address] [place], [address], 4 11:09:18 CMP, serum or plasma 2023 024 [place] [facility] ([facility]), [address] [place], [address], 4 11:09:18 lipid panel, serum 2023 024 SAMANTHA [facility] ([facility]), [address] [place], [address], 4 11:09:19 HIV 1 + 2, meaningful use set 2023 024 SAMANTHA [facility] ([facility]), [address] [place], [address], 4 11:09:22 Hepatitis C IgG Ab, qual, serum 2023 024 [place] [facility] ([facility]), [address] [facility], [place], [address], 4 11:09:20 Referral None recorded. Procedures None recorded. Surgeries None recorded. Imaging None recorded. Medication Orders Pristiq 100 mg tablet,exte nded release 2024 025 SAMANTHA [facility], [facility] [place], [address], 11:49:56 Pristiq 100 mg tablet,exte nded release 2023 024 [facility], [facility] [place], [address], 12:18:53 Patient TargetsNo targets recorded. Patient Instructions Encounter Date Encounter Id Patient Instructions Last Modified By Organization Details Last Modified Time 02/27/2024 [id number] body mass index: care instructions Not available 02/27/2024 15:31:31 learning about healthy weight [email or web address] Not available 02/27/2024 15:31:31 10/05/2024 [id number] high cholesterol : care instructions [email or web address] Not available 10/05/2024 17:47:50 Reason for Referral None Reported. Results Created Date Observation Date Name Description Value Unit Range Abnormal Flag Note LastModifiedBy Organization Detail LastModifiedTime 02/27/2002/28/2024 CBC WITH DIFFE RENTI AL/PL ATELE T WBC 6.2 x10e3 /uL 3.4-10 .8 normal Eff ectiv e Decem jsa 2023 profi praneeth [id number] WBC will be made* * non-o rdera ble as a stand -emmanuel e order code. Not Available [facility] ([facility]) [address] [facility], [place], [address], 02/28/2024 11:09:18 02/27/20 24 02/28/2024 CBC WITH DIFFE RENTI AL/PL ATELE T RBC 5.13 x10e6 /uL 4.14-5 .80 normal Not Available [facility] ([facility]) [address] [place], [address], 02/28/2024 11:09:18 02/27/20 24 02/28/2024 CBC WITH DIFFE RENTI AL/PL ATELE T hemoglobin 16.6 g/dL 13.0-1 7.7 normal Not Available [facility] ([facility]) [address] [place], [address], 02/28/2024 11:09:18 02/27/20 24 02/28/2024 CBC WITH DIFFE RENTI AL/PL ATELE T hematocrit 48.5 % 37.5-5 1.0 normal Not Available [facility] ([facility]) [address] [place], [address], 02/28/2024 11:09:18 02/27/20 24 02/28/2024 CBC WITH DIFFE RENTI AL/PL ATELE T MCV 95 fL 79-97 normal Not Available [facility] ([facility]) [address] [place], [address], 02/28/2024 11:09:18 02/27/20 24 02/28/2024 CBC WITH DIFFE RENTI AL/PL ATELE T MCH 32.4 pg 26.6-3 3.0 normal Not Available [facility] ([facility]) [address] [place], [address], 02/28/2024 11:09:18 02/27/20 24 02/28/2024 CBC WITH DIFFE RENTI AL/PL ATELE T MCHC 34.2 g/dL 31.5-3 5.7 normal Not Available [facility] ([facility]) [address] [place], [address], 02/28/2024 11:09:18 02/27/20 24 02/28/2024 CBC WITH DIFFE RENTI AL/PL ATELE T RDW 12.4 % 11.6-1 5.4 Not Available [facility] ([facility]) [address] [facility], [place], [address], 02/28/2024 11:09:18 02/27/20 24 02/28/2024 CBC WITH DIFFE RENTI AL/PL ATELE T platelets 305 x10e3 /uL 150-45 0 normal Not Available [facility] ([facility]) [address] [facility], [place], [address], 02/28/2024 11:09:18 02/27/20 24 02/28/2024 CBC WITH DIFFE RENTI AL/PL ATELE T neutrophils 56 % not estab. normal Not Available [facility] ([facility]) [address] [facility], [place], [address], 02/28/2024 11:09:18 02/27/20 24 02/28/2024 CBC WITH DIFFE RENTI AL/PL ATELE T lymphs 33 % not estab. normal Not Available [facility] ([facility]) [address] [facility], [place], [address], 02/28/2024 11:09:18 02/27/20 24 02/28/2024 CBC WITH DIFFE RENTI AL/PL ATELE T monocytes 7 % not estab. normal Not Available [facility] ([facility]) [address] [facility], [place], [address], 02/28/2024 11:09:18 02/27/20 24 02/28/2024 CBC WITH DIFFE RENTI AL/PL ATELE T eos 3 % not estab. normal Not Available [facility] ([facility]) [address] [facility], [place], [address], 02/28/2024 11:09:18 02/27/20 24 02/28/2024 CBC WITH DIFFE RENTI AL/PL ATELE T basos 1 % not estab. normal Not Available [facility] ([facility]) [address] [facility], [place], [address], 02/28/2024 11:09:18 02/27/20 24 02/28/2024 CBC WITH DIFFE RENTI AL/PL ATELE T immature cells RESEARCH PHYSICIST Not Available [facility] ([facility]) [address] [facility], [place], [address], 02/28/2024 11:09:18 02/27/20 24 02/28/2024 CBC WITH DIFFE RENTI AL/PL ATELE T neutrophils (absolute) 3.5 x10e3 /uL 1.4-7. 0 normal Not Available [facility] ([facility]) [address] [facility], [place], [address], 02/28/2024 11:09:18 02/27/20 24 02/28/2024 CBC WITH DIFFE RENTI AL/PL ATELE T lymphs (absolute) 2.1 x10e3 /uL 0.7-3. 1 normal Not Available [facility] ([facility]) [address] [place], [address], 02/28/2024 11:09:18 02/27/20 24 02/28/2024 CBC WITH DIFFE RENTI AL/PL ATELE T monocytes(ab solute) 0.4 x10e3 /uL 0.1-0. 9 normal Not Available [facility] ([facility]) [address] [place], [address], 02/28/2024 11:09:18 02/27/20 24 02/28/2024 CBC WITH DIFFE RENTI AL/PL ATELE T eos (absolute) 0.2 x10e3 /uL 0.0-0. 4 normal Not Available [facility] ([facility]) [address] [place], [address], 02/28/2024 11:09:18 02/27/20 24 02/28/2024 CBC WITH DIFFE RENTI AL/PL ATELE T baso (absolute) 0.1 x10e3 /uL 0.0-0. 2 normal Not Available [facility] ([facility]) [address] [facility], [place], [address], 02/28/2024 11:09:18 02/27/20 24 02/28/2024 CBC WITH DIFFE RENTI AL/PL ATELE T immature granulocytes 0 % not estab. Not Available [facility] ([facility]) [address] [facility], [place], [address], 02/28/2024 11:09:18 02/27/20 24 02/28/2024 CBC WITH DIFFE RENTI AL/PL ATELE T immature grans (abs) 0.0 x10e3 /uL 0.0-0. 1 Not Available [facility] ([facility]) [address] [facility], [place], [address], 02/28/2024 11:09:18 02/27/20 24 02/28/2024 CBC WITH DIFFE RENTI AL/PL ATELE T NRBC RESEARCH PHYSICIST Not Available [facility] ([facility]) [address] [facility], [place], [address], 02/28/2024 11:09:18 02/27/20 24 02/28/2024 CBC WITH DIFFE RENTI AL/PL ATELE T hematology comments: RESEARCH PHYSICIST Not Available [facility] ([facility]) [address] [facility], [place], [address], 02/28/2024 11:09:18 02/27/20 24 02/28/2024 COMP. METAB OLIC PANEL (14) glucose 97 mg/dL 70-99 normal Not Available [facility] ([facility]) [address] [place], [address], 02/28/2024 11:09:18 02/27/20 24 02/28/2024 COMP. METAB OLIC PANEL (14) BUN 16 mg/dL 6-20 normal Not Available [facility] ([facility]) [address] [facility], [place], [address], 02/28/2024 11:09:18 02/27/20 24 02/28/2024 COMP. METAB OLIC PANEL (14) creatinine 0.96 mg/dL 0.76-1 .27 normal Not Available [facility] ([facility]) [address] [place], [address], 02/28/2024 11:09:18 02/27/20 24 02/28/2024 COMP. METAB OLIC PANEL (14) eGFR 106 mL/mi n/1.7 3 >59 normal Not Available [facility] ([facility]) [address] [facility] [place], [address], 02/28/2024 11:09:18 02/27/20 24 02/28/2024 COMP. METAB OLIC PANEL (14) BUN/creatini ne ratio 17 9-20 normal Not Available [facility] ([facility]) [address] [facility], [place], [address], 02/28/2024 11:09:18 02/27/20 24 02/28/2024 COMP. METAB OLIC PANEL (14) sodium 139 mmol/ L 134-14 4 normal Not Available [facility] ([facility]) [address] [facility] [place], [address], 02/28/2024 11:09:18 02/27/20 24 02/28/2024 COMP. METAB OLIC PANEL (14) potassium 4.8 mmol/ L 3.5-5. 2 normal Not Available [facility] ([facility]) [address] [facility] [place], [address], 02/28/2024 11:09:18 02/27/20 24 02/28/2024 COMP. METAB OLIC PANEL (14) chloride 101 mmol/ L 96-106 normal Not Available [facility] ([facility]) [address] [facility] [place], [address], 02/28/2024 11:09:18 02/27/20 24 02/28/2024 COMP. METAB OLIC PANEL (14) carbon dioxide, total 23 mmol/ L 20-29 normal Not Available [facility] ([facility]) [address] [place], [address], 02/28/2024 11:09:18 02/27/20 24 02/28/2024 COMP. METAB OLIC PANEL (14) calcium 9.7 mg/dL 8.7-10 .2 normal Not Available [facility] ([facility]) [address] [place], [address], 02/28/2024 11:09:18 02/27/20 24 02/28/2024 COMP. METAB OLIC PANEL (14) protein, total 7.2 g/dL 6.0-8. 5 normal Not Available [facility] ([facility]) [address] [place], [address], 02/28/2024 11:09:18 02/27/20 24 02/28/2024 COMP. METAB OLIC PANEL (14) albumin 4.8 g/dL 4.1-5. 1 normal Not Available [facility] ([facility]) [address] [facility] [place], [address], 02/28/2024 11:09:18 02/27/20 24 02/28/2024 COMP. METAB OLIC PANEL (14) globulin, total 2.4 g/dL 1.5-4. 5 Not Available [facility] ([facility]) [address] [place], [address], 02/28/2024 11:09:18 02/27/20 24 02/28/2024 COMP. METAB OLIC PANEL (14) bilirubin, total 0.5 mg/dL 0.0-1. 2 normal Not Available [facility] ([facility]) [address] [facility] [place], [address], 02/28/2024 11:09:18 02/27/20 24 02/28/2024 COMP. METAB OLIC PANEL (14) alkaline phosphatase 76 IU/L 44-121 normal Not Available [facility] ([facility]) [address] [place], [address], 02/28/2024 11:09:18 02/27/20 24 02/28/2024 COMP. METAB OLIC PANEL (14) AST (SGOT) 28 IU/L 0-40 normal Not Available [facility] ([facility]) [address] [place], [address], 02/28/2024 11:09:18 02/27/20 24 02/28/2024 COMP. METAB OLIC PANEL (14) ALT (SGPT) 41 IU/L 0-44 normal Not Available [facility] ([facility]) [address] [place], [address], 02/28/2024 11:09:18 02/27/20 24 02/28/2024 LIPID PANEL cholesterol, total 230 mg/dL 100-19 9 above high normal Not Available [facility] ([facility]) [address] [place], [address], 02/28/2024 11:09:19 02/27/20 24 02/28/2024 LIPID PANEL triglyceride s 115 mg/dL 0-149 normal Not Available [facility] ([facility]) [address] [place], [address], 02/28/2024 11:09:19 02/27/20 24 02/28/2024 LIPID PANEL HDL cholesterol 50 mg/dL >39 normal Not Available [facility] ([facility]) [address] [place], [address], 02/28/2024 11:09:19 02/27/20 24 02/28/2024 LIPID PANEL VLDL cholesterol yovani 21 mg/dL 5-40 Not Available [facility] ([facility]) [address] [place], [address], 02/28/2024 11:09:19 02/27/20 24 02/28/2024 LIPID PANEL LDL chol calc ([facility]) 159 mg/dL 0-99 above high normal Not Available [facility] ([facility]) [address] [facility], [place], [address], 02/28/2024 11:09:19 02/27/20 24 02/28/2024 LIPID PANEL LDL calc comment: RESEARCH PHYSICIST Not Available [facility] ([facility]) [address] [facility], [place], [address], 02/28/2024 11:09:19 02/27/20 24 02/28/2024 VITAM IN B12 AND FOLAT E vitamin B12 988 pg/mL 232-12 45 normal Not Available [facility] ([facility]) [address] [facility], [place], [address], 02/28/2024 11:09:19 02/27/20 24 02/28/2024 VITAM IN B12 AND FOLAT E folate (folic acid), serum 12.0 NG/mL >3.0 normal A serum folat e ana maría ntrat ion of less than 3.1 ng/mL is consi dered to repre sent clini yovani defic iency . Not Available [facility] ([facility]) [address] [facility], [place], [address], 02/28/2024 11:09:19 02/27/20 24 02/28/2024 HCV ANTIB JUAN CARLOS CASCA DE(PC R/GEN O) HCV Ab Non Reacti ve non reacti ve Not Available [facility] ([facility]) [address] [facility], [place], [address], 02/28/2024 11:09:20 02/27/20 24 02/28/2024 HCV ANTIB JUAN CARLOS CASCA DE(PC R/GEN O) interpretati on: Commen t Not infec casey with HCV unles s early or acute infec tion is suspe cted (whic h may be delay ed in an immun ocomp romis ed indiv idual ), or other evide nce exist s to indic ate HCV infec tion. Not Available [facility] ([facility]) [address] [facility], [place], [address], 02/28/2024 11:09:20 02/27/20 24 02/28/2024 TESTO STERO NE testosterone 133 NG/dL 264-91 6 below low normal Adult male refer ence inter mc is based on a popul ation of healt hy nonob murphy males (BMI <30) betwe en 19 and 39 years old. David brooks, et.al . JCEM 2017, 102;1 161-1 173. PMID: 09342 103. Not Available [facility] ([facility]) [address] [facility], [place], [address], 02/28/2024 11:09:21 02/27/20 24 02/28/2024 TSH TSH 2.240 uIU/m L 0.450- 4.500 normal Not Available [facility] ([facility]) [address] [place], [address], 02/28/2024 11:09:21 02/27/20 24 02/28/2024 VITAM IN D, 25-HY DROXY vitamin D, 25-hydroxy 24.7 NG/mL 30.0-1 00.0 below low normal Vitam in D defic iency has been defin ed by the Insti tute of Medic ine and an Endoc rine Socie ty pract ice guide line as a level of serum 25-OH vitam in D less than 20 ng/mL (1,2) . The Endoc rine Socie ty went on to furth er defin e vitam in D insuf ficie ncy as a level betwe en 21 and 29 ng/mL (2). 1. IOM (Inst itute of Medic ine). 2010. Dieta ry refer ence intak es for calci um and D. Dione freitas [place]: [facility] Press . 2. Holic k [place], [place], Bisch off-F nathanar i RANGEL, et al. Evalu ation , treat ment, and preve ntion of vitam in D defic iency : an Endoc rine Socie ty clini yovani pract ice guide line. JCEM. 2010; 96(7) :1911 -30. Not Available [facility] ([facility]) [address] [place], [address], 02/28/2024 11:09:22 02/27/20 24 02/28/2024 HIV AB/P2 4 AG WITH REFLE X HIV Ab/P24 Ag screen Non Reacti ve non reacti ve HIV Negat albino HIV-1 /HIV- 2 antib odies and HIV-1 p24 antig en were NOT detec casey. There is no labor atory evide nce of HIV infec tion. Not Available [facility] ([facility]) [address] [facility], [place], [address], 02/28/2024 11:09:22 10/06/19 25 10/07/2024 CBC WITH DIFFE RENTI AL/PL ATELE T WBC 9.4 x10e3 /uL 3.4-10 .8 normal Not Available [facility] ([facility]) [address] [place], [address], 10/07/2024 11:08:24 10/06/19 25 10/07/2024 CBC WITH DIFFE RENTI AL/PL ATELE T RBC 5.69 x10e6 /uL 4.14-5 .80 normal Not Available [facility] ([facility]) [address] [place], [address], 10/07/2024 11:08:24 10/06/19 25 10/07/2024 CBC WITH DIFFE RENTI AL/PL ATELE T hemoglobin 18.2 g/dL 13.0-1 7.7 above high normal Not Available [facility] ([facility]) [address] [place], [address], 10/07/2024 11:08:24 10/06/19 25 10/07/2024 CBC WITH DIFFE RENTI AL/PL ATELE T hematocrit 56.0 % 37.5-5 1.0 above high normal Not Available [facility] ([facility]) [address] [facility], [place], [address], 10/07/2024 11:08:24 10/06/19 25 10/07/2024 CBC WITH DIFFE RENTI AL/PL ATELE T MCV 98 fL 79-97 above high normal Not Available [facility] ([facility]) [address] [place], [address], 10/07/2024 11:08:24 10/06/19 25 10/07/2024 CBC WITH DIFFE RENTI AL/PL ATELE T MCH 32.0 pg 26.6-3 3.0 normal Not Available [facility] ([facility]) [address] [place], [address], 10/07/2024 11:08:24 10/06/19 25 10/07/2024 CBC WITH DIFFE RENTI AL/PL ATELE T MCHC 32.5 g/dL 31.5-3 5.7 normal Not Available [facility] ([facility]) [address] [place], [address], 10/07/2024 11:08:24 10/06/19 25 10/07/2024 CBC WITH DIFFE RENTI AL/PL ATELE T RDW 13.2 % 11.6-1 5.4 Not Available [facility] ([facility]) [address] [place], [address], 10/07/2024 11:08:24 10/06/19 25 10/07/2024 CBC WITH DIFFE RENTI AL/PL ATELE T platelets 312 x10e3 /uL 150-45 0 normal Not Available [facility] ([facility]) [address] [place], [address], 10/07/2024 11:08:24 10/06/19 25 10/07/2024 CBC WITH DIFFE RENTI AL/PL ATELE T neutrophils 65 % not estab. normal Not Available [facility] ([facility]) [address] [facility], [place], [address], 10/07/2024 11:08:24 10/06/19 25 10/07/2024 CBC WITH DIFFE RENTI AL/PL ATELE T lymphs 24 % not estab. normal Not Available [facility] ([facility]) [address] [place], [address], 10/07/2024 11:08:24 10/06/19 25 10/07/2024 CBC WITH DIFFE RENTI AL/PL ATELE T monocytes 7 % not estab. normal Not Available [facility] ([facility]) [address] [place], [address], 10/07/2024 11:08:24 10/06/19 25 10/07/2024 CBC WITH DIFFE RENTI AL/PL ATELE T eos 3 % not estab. normal Not Available [facility] ([facility]) [address] [facility], [place], [address], 10/07/2024 11:08:24 10/06/19 25 10/07/2024 CBC WITH DIFFE RENTI AL/PL ATELE T basos 1 % not estab. normal Not Available [facility] ([facility]) [address] [facility], [place], [address], 10/07/2024 11:08:24 10/06/19 25 10/07/2024 CBC WITH DIFFE RENTI AL/PL ATELE T immature cells RESEARCH PHYSICIST Not Available [facility] ([facility]) [address] [place], [address], 10/07/2024 11:08:24 10/06/19 25 10/07/2024 CBC WITH DIFFE RENTI AL/PL ATELE T neutrophils (absolute) 6.1 x10e3 /uL 1.4-7. 0 normal Not Available [facility] ([facility]) [address] [place], [address], 10/07/2024 11:08:24 10/06/19 25 10/07/2024 CBC WITH DIFFE RENTI AL/PL ATELE T lymphs (absolute) 2.3 x10e3 /uL 0.7-3. 1 normal Not Available [facility] ([facility]) [address] [place], [address], 10/07/2024 11:08:24 10/06/19 25 10/07/2024 CBC WITH DIFFE RENTI AL/PL ATELE T monocytes(ab solute) 0.6 x10e3 /uL 0.1-0. 9 normal Not Available [facility] ([facility]) [address] [place], [address], 10/07/2024 11:08:24 10/06/19 25 10/07/2024 CBC WITH DIFFE RENTI AL/PL ATELE T eos (absolute) 0.3 x10e3 /uL 0.0-0. 4 normal Not Available [facility] ([facility]) [address] [place], [address], 10/07/2024 11:08:24 10/06/19 25 10/07/2024 CBC WITH DIFFE RENTI AL/PL ATELE T baso (absolute) 0.1 x10e3 /uL 0.0-0. 2 normal Not Available [facility] ([facility]) [address] [place], [address], 10/07/2024 11:08:24 10/06/19 25 10/07/2024 CBC WITH DIFFE RENTI AL/PL ATELE T immature granulocytes 0 % not estab. Not Available [facility] ([facility]) [address] [place], [address], 10/07/2024 11:08:24 10/06/19 25 10/07/2024 CBC WITH DIFFE RENTI AL/PL ATELE T immature grans (abs) 0.0 x10e3 /uL 0.0-0. 1 Not Available [facility] ([facility]) [address] [facility], [place], [address], 10/07/2024 11:08:24 10/06/19 25 10/07/2024 CBC WITH DIFFE RENTI AL/PL ATELE T NRBC RESEARCH PHYSICIST Not Available [facility] ([facility]) [address] [facility], [place], [address], 10/07/2024 11:08:24 10/06/19 25 10/07/2024 CBC WITH DIFFE RENTI AL/PL ATELE T hematology comments: RESEARCH PHYSICIST Not Available [facility] ([facility]) [address] [facility], [place], [address], 10/07/2024 11:08:24 10/06/19 25 10/07/2024 COMP. METAB OLIC PANEL (14) glucose 96 mg/dL 70-99 normal Not Available [facility] ([facility]) [address] [place], [address], 10/07/2024 11:08:25 10/06/19 25 10/07/2024 COMP. METAB OLIC PANEL (14) BUN 11 mg/dL 6-20 normal Not Available [facility] ([facility]) [address] [place], [address], 10/07/2024 11:08:25 10/06/19 25 10/07/2024 COMP. METAB OLIC PANEL (14) creatinine 1.06 mg/dL 0.76-1 .27 normal Not Available [facility] ([facility]) [address] [facility], [place], [address], 10/07/2024 11:08:25 10/06/19 25 10/07/2024 COMP. METAB OLIC PANEL (14) eGFR 93 mL/mi n/1.7 3 >59 normal Not Available [facility] ([facility]) [address] [facility] [place], [address], 10/07/2024 11:08:25 10/06/19 25 10/07/2024 COMP. METAB OLIC PANEL (14) BUN/creatini ne ratio 10 9-20 normal Not Available [facility] ([facility]) [address] [facility] [place], [address], 10/07/2024 11:08:25 10/06/19 25 10/07/2024 COMP. METAB OLIC PANEL (14) sodium 141 mmol/ L 134-14 4 normal Not Available [facility] ([facility]) [address] [facility] [place], [address], 10/07/2024 11:08:25 10/06/19 25 10/07/2024 COMP. METAB OLIC PANEL (14) potassium 3.9 mmol/ L 3.5-5. 2 normal Not Available [facility] ([facility]) [address] [facility] [place], [address], 10/07/2024 11:08:25 10/06/19 25 10/07/2024 COMP. METAB OLIC PANEL (14) chloride 103 mmol/ L 96-106 normal Not Available [facility] ([facility]) [address] [facility] [place], [address], 10/07/2024 11:08:25 10/06/19 25 10/07/2024 COMP. METAB OLIC PANEL (14) carbon dioxide, total 20 mmol/ L 20-29 normal Not Available [facility] ([facility]) [address] [facility] [place], [address], 10/07/2024 11:08:25 10/06/19 25 10/07/2024 COMP. METAB OLIC PANEL (14) calcium 9.6 mg/dL 8.7-10 .2 normal Not Available [facility] ([facility]) [address] [facility] [place], [address], 10/07/2024 11:08:25 10/06/19 25 10/07/2024 COMP. METAB OLIC PANEL (14) protein, total 7.2 g/dL 6.0-8. 5 normal Not Available [facility] ([facility]) [address] [facility] [place], [address], 10/07/2024 11:08:25 10/06/19 25 10/07/2024 COMP. METAB OLIC PANEL (14) albumin 4.7 g/dL 4.1-5. 1 normal Not Available [facility] ([facility]) [address] [facility] [place], [address], 10/07/2024 11:08:25 10/06/19 25 10/07/2024 COMP. METAB OLIC PANEL (14) globulin, total 2.5 g/dL 1.5-4. 5 Not Available [facility] ([facility]) [address] [facility] [place], [address], 10/07/2024 11:08:25 10/06/19 25 10/07/2024 COMP. METAB OLIC PANEL (14) bilirubin, total 0.5 mg/dL 0.0-1. 2 normal Not Available [facility] ([facility]) [address] [facility] [place], [address], 10/07/2024 11:08:25 10/06/19 25 10/07/2024 COMP. METAB OLIC PANEL (14) alkaline phosphatase 69 IU/L 44-121 normal Not Available [facility] ([facility]) [address] [facility] [place], [address], 10/07/2024 11:08:25 10/06/19 25 10/07/2024 COMP. METAB OLIC PANEL (14) AST (SGOT) 29 IU/L 0-40 normal Not Available [facility] ([facility]) [address] [facility], [place], [address], 10/07/2024 11:08:25 10/06/19 25 10/07/2024 COMP. METAB OLIC PANEL (14) ALT (SGPT) 33 IU/L 0-44 normal Not Available [facility] ([facility]) [address] [facility] [place], [address], 10/07/2024 11:08:25 10/06/19 25 10/07/2024 LIPID PANEL cholesterol, total 190 mg/dL 100-19 9 normal Not Available [facility] ([facility]) [address] [facility] [place], [address], 10/07/2024 11:08:26 10/06/19 25 10/07/2024 LIPID PANEL triglyceride s 72 mg/dL 0-149 normal Not Available [facility] ([facility]) [address] [place], [address], 10/07/2024 11:08:26 10/06/19 25 10/07/2024 LIPID PANEL HDL cholesterol 45 mg/dL >39 normal Not Available [facility] ([facility]) [address] [place], [address], 10/07/2024 11:08:26 10/06/19 25 10/07/2024 LIPID PANEL VLDL cholesterol yovani 13 mg/dL 5-40 Not Available [facility] ([facility]) [address] [place], [address], 10/07/2024 11:08:26 10/06/19 25 10/07/2024 LIPID PANEL LDL chol calc ([facility]) 132 mg/dL 0-99 above high normal Not Available [facility] ([facility]) [address] [place], [address], 10/07/2024 11:08:26 10/06/19 25 10/07/2024 LIPID PANEL LDL calc comment: RESEARCH PHYSICIST Not Available [facility] ([facility]) [address] [place], [address], 10/07/2024 11:08:26 10/06/1910/07/2024 TESTO STERO NE testosterone 842 NG/dL 264-91 6 normal Adult male refer ence inter mc is based on a popul ation of healt hy nonob murphy males (BMI <30) betwe en 19 and 39 years old. David brooks, et.al . JCEM 2017, 102;1 161-1 173. PMID: 24549 103. Not Available [facility] ([facility]) [address] [facility], [place], [address], 10/07/2024 11:08:26 10/06/1910/07/2024 TSH TSH 3.020 uIU/m L 0.450- 4.500 normal Not Available [facility] ([facility]) [address] [facility], [place], [address], 10/07/2024 11:08:27 10/06/1910/07/2024 VITAM IN D, 25-HY DROXY vitamin D, 25-hydroxy 46.5 NG/mL 30.0-1 00.0 Vitam in D defic iency has been defin ed by the Insti tute of Medic ine and an Endoc rine Socie ty pract ice guide line as a level of serum 25-OH vitam in D less than 20 ng/mL (1,2) . The Endoc rine Socie ty went on to furth er defin e vitam in D insuf ficie ncy as a level betwe en 21 and 29 ng/mL (2). 1. IOM (Inst itute of Medic ine). 2009. Dieta ry refer kalyanie cyndee es for calci um and D. Dione freitas [place]: [facility] Press . 2. Salomon iglesias [place], Libby fuentes [place], Anel off-F errar i RANGEL, et al. Evalu ation , treat ment, and preve ntion of vitam in D defic iency : an Endoc rine Socie ty clini yovani pract ice guide line. JCEM. 2010; 96(7) :1911 -30. Not Available [facility] ([facility]) [address], [place], [address], 10/07/2024 11:08:28 02/27/20 24 home sleep study No observ ation record ed. Not Available 2023 15:27:26 Result Notes None recorded. Problems Name Problem SNOMED Code Status Onset Date Resolution Date Notes Provider Name and Address Organization Details Recorded Time Generalized anxiety disorder 63240659 Active 2023 MIKA Meadows [address] [place] [address], [phone], [employer] 4 11:15:27 Obstructive sleep apnea syndrome 70537684 Active 2023 MIKA Meadows [address] [place] [address], [address], [employer] 4 11:15:37 Testosterone level below reference range 622944727 Active 2023 MIKA Meadows [address] [place] [address], [phone], [employer] 4 11:15:34 Hyperlipidemia 32210140 Active 2023 MIKA Meadows [address] [place] [address], [address] 8, [employer] 4 11:15:31 Vitamin D deficiency 88053821 Active 2023 MIKA Meadows [address] [place] [address], [phone], [employer] 4 11:15:41 Problem Notes None recorded. Procedures Surgical History Date Name Laterality Status Provider Name and Address Organization Details Recorded Time repair of meniscus completed [employer] 02/27/2024 11:40:35 Periodontal mucosal grafting completed [employer] 02/27/2024 11:40:44 Imaging Results None recorded. Procedure Notes None recorded. Medical Equipment None Reported. Allergies No known drug allergies Medications Name Sig Start Date Stop Date Status Note LastModified by Organization Details LastModified Time amoxicillin 500 mg capsule 02/26 completed Not Available Not Available Not Available atorvastati n 10 mg tablet Take 1 tablet every day by oral route at bedtime for 90 days, for high cholester ol. 10/05 completed Not Available Not Available Not Available hydrocodone 5 mg-acetamin ophen 325 mg tablet 02/26 completed Not Available Not Available Not Available cyanocobala min (vit B-12) 1,000 mcg/mL injection solution 02/26 completed Not Available Not Available Not Available neomycin-po lymyxin-dex ameth 3.5 mg/mL-10,00 0 unit/mL-0.1 % eye drops 02/26 completed Not Available Not Available Not Available lidocaine 5 % topical patch 10/05 completed Not Available Not Available Not Available ibuprofen 600 mg tablet 02/26 completed Not Available Not Available Not Available methylpredn isolone 4 mg tablets in a dose pack FOLLOW PACKAGE DIRECTION S 10/05 completed Not Available Not Available Not Available Vitamin D2 1,250 mcg (50,000 unit) capsule Take 1 capsule every week by oral route as directed for 90 days, for Vitamin D deficienc y. active Not Available Not Available No t Available cefdinir 300 mg capsule TAKE 1 CAPSULE BY MOUTH TWICE DAILY 02/26 completed Not Available Not Available Not Available fluticasone propionate 50 mcg/actuati on nasal spray,suspe nsion USE 1 SPRAY(S) IN EACH NOSTRIL ONCE DAILY 02/26 completed Not Available Not Available Not Available amoxicillin 875 mg-harpaliu m clavulanate 125 mg tablet 02/26 completed Not Available Not Available Not Available cholecalcif amrit (vitamin D3) 25 mcg (1,000 unit) capsule Take 1 capsule every day by oral route as directed for 90 days, for Vitamin D deficienc y. active Not Available Not Available No t Available cyclobenzap rine 5 mg tablet TAKE ONE TABLET BY MOUTH AT BEDTIME NEEDED 10/05 completed Not Available Not Available Not Available testosteron e 50 mg/5 gram (1 %) transdermal gel APPLY 2 TUBES DAILY TOPICALLY TO THE SKIN FOR 30 DAYS 10/05 completed Not Available Not Available Not Available desvenlafax ine succinate ER 50 mg tablet,exte nded release 24 hr 02/26 completed Not Available Not Available Not Available Pristiq 100 mg tablet,exte nded release Take 1 tablet every day by oral route as directed for 90 days, for anxiety/d epression . 2024 active Not Available Not Available Not Avai lable desvenlafax ine succinate ER 25 mg tablet,exte nded release 24 hr 02/26 completed Not Available Not Available Not Available Xyosted 100 mg/0.5 mL subcutaneou s auto-inject or INJECT 1 SYRINGE SUBCUTANE OUSLY ONCE A WEEK active Not Available Not Available No t Available Xyosted 75 mg/0.5 mL subcutaneou s auto-inject or INJECT 0.5 ML SUBCUTANE OUSLY ONCE A WEEK 10/05 completed Not Available Not Available Not Available Vitals Date Recorded Body height Body mass index (BMI) Body weight Oxygen saturation Oxygen saturation in Arterial blood by Pulse oximetry Heart rate Body temperature Systolic And Diastolic Provider Name and Address Organization Details Last Updated DateTime 5 193.04 cm 34 kg/m2 561703. 27 g 97 % 97 % 82 /min 98.5 [degF] 136/88 mm[Hg] Abigail Stewart 5 17:21:20 Date Recorded Body weight Body mass index (BMI) Body height Oxygen saturation Oxygen saturation in Arterial blood by Pulse oximetry Heart rate Systolic And Diastolic Provider Name and Address Organization Details Last Updated DateTime 4 848818. 34 g 33.5 kg/m2 193.04 cm 96 % 96 % 86 /min 124/81 mm[Hg] Abigail Stewart 4 11:37:06 Social History Question Answer Notes LastModified by Organizat ion Details LastModified Time Tobacco Smoking Status Never Smoker [employer] 02/27/2024 11:39:19 Do You Have An Advance Directive? No Information not available 02/27/2024 Is Your Home Air Conditioned? Yes Information not available 02/27/2024 Do You Wear A Helmet When Biking? No Information not available 02/27/2024 Are You Blind Or Do You Have Difficulty Seeing? No Information not available 02/27/2024 What Is Your Level Of Caffeine Consumption? Moderate Information not available 02/27/2024 What Type Of Charge Lpn Do You Use? None Information not available 02/27/2024 Have You Been To An Area Known To Be High Risk For COVID-19? No Information not available 02/27/2024 Are You Deaf Or Do You Have Serious Difficulty Hearing? No Information not available 02/27/2024 What Type Of Diet Are You Following? REGULAR Information not available 02/27/2024 What Is The Highest Grade Or Level Of School You Have Completed Or The Highest Degree You Have Received? [id number] Information not available 02/27/2024 Who Is Your Employer? Self Employed Information not available 02/27/2024 Have There Been Any Changes To Your Family Or Social Situation? No Information no t available 02/27/2024 Are There Any Guns Present In Your Home? Yes Information not available 02/27/2024 Which Of Your Hands Is Dominant? Right Information not available 02/27/2024 Do You Have A Medical Power Of Cleat Thrower? No Information not available 02/27/2024 What Was The Date Of Your Most Recent Tobacco Screening? 10/05/2024 Information not available 10/05/2024 Do You Have Any Pets? Yes Information not available 02/27/2024 Do You Use Protection During Sex? No Information not available 02/27/2024 What Is Your Relationship Status? Information not available 02/27/2024 Have You Repeated Any Grades? No Information not available 02/27/2024 Do You Use Your Seat Belt Or Car Seat Routinely? No Information not available 02/27/2024 Are You Sexually Active? Yes Information not available 02/27/2024 Do You Have Smoke And Carbon Monoxide Detectors In Your Home? Yes Information not available 02/27/2024 Are You Passively Exposed To Smoke? No Information no t available 02/27/2024 Are There Any Smokers In Your House? No Information not available 02/27/2024 Do You Participate In Social Media? Yes Information not available 02/27/2024 Do You Use Sunscreen Routinely? No Information not available 02/27/2024 Has Tobacco Cessation Counseling Been Provided? No Information not available 02/27/2024 Have You Recently Traveled Abroad? No Information not available 02/27/2024 Do You Have Difficulty Walking Or Climbing Stairs? No Information not available 02/27/2024 Are You Currently In School? No Information not available 02/27/2024 Do You Have Any Dietary Restrictions? No Information not available 02/27/2024 Sex: Male Functional Status Question Answer Note LastModified by [employer] Details LastModified Time Do you use any illicit or recreational drugs? No Information not available 02/27/2024 Do you or have you ever used any other forms of tobacco or nicotine? No Information not available 02/27/2024 What is your level of alcohol consumption? Moderate Information not available 02/27/2024 Are you currently employed? Yes Information not available 02/27/2024 Do you have transportation difficulties? No Information not available 02/27/2024 Are you able to walk independently without assistance or assistive devices? YES[employer]OREST Information not available 02/27/2024 Do you have difficulty doing errands alone? No Information not available 02/27/2024 Are you able to care for yourself independently? Yes Information not available 02/27/2024 Do you have difficulty dressing, bathing, grooming, or toileting? No Information not available 02/27/2024 What is your exercise level? Occasional Information not available 02/27/2024 Mental Status Question Answer Note LastModified by Organizat ion Details LastModified Time Do you feel stressed (tense, restless, nervous, or anxious, or unable to sleep at night)? [id number] Information not available 02/27/2024 Do you have difficulty concentrating, remembering or making decisions? No Information no t available 02/27/2024 Are you or have you been involved with bullying? No Information not available 02/27/2024 Family History Relationship Description Onset Age of this Age Resolved Age Notes LastModified by Organization Details LastModified Time Mother Malignant neoplasm of cervix uteri Not available 11:38:43 Medical History Condition Response Coronary Artery Disease N Other N Gout N Blood Diseases N Kidney Stones N Hyperthyroidism N Blood Transfusion N Breast Cancer N Emergency room visit since last appointm ent. N Lung Disease N COPD N Depression N Dermatologic Disorders N Hypothyroidism N Defects or Inherited Disease N Developmental or Behavioral Disorders N Breast Problem N Difficulty Swallowing N Anesthesia Complications N History of STI N Meniere's disease N Anxiety Disorder Y Muscle, Joint, or Bone Problems N Autoimmune disease N Vision or Eye Problems N Arthritis N Polyps N Infertility N Mental Disorder N Congenital Anomalies N Acid Reflux (GERD) N Cancer N Stroke N Neurologic/Epilepsy N Endometriosis N Bladder or Kidney Problems N High Cholesterol Y Liver Disease Y Psychiatric/Mental Health Condition N Organ Transplant N Dialysis N Schizophrenia N Fibromyalgia N Headaches N Kidney Disease N Allergies/Hayfever N Heart Problems N Ear or Hearing Problems N Hospitalizations N Learning Disorder N Artificial Joints N Thyroid Problems N GI Problems N Acne N ADD/ADHD N Eating Disorder N Anemia N Constipation N Mental Illness N Diabetes N Ovarian Cancer N Bedwetting N Hepatitis/Liver Disease N Tuberculosis N Eczema N Abuse/Domestic Violence N Diverticulitis N Asthma N Trauma/Violence N Substance Abuse N Reflux/GERD N Depression/ depression N Hepatitis N Heart Disease N Pulmonary Embolism N Tourette Syndrome N Chronic Ear Infections N Pre-Eclampsia N Hypertension N Chicken Pox N Autism Spectrum Disorder (ASD) N Osteoporosis N Thrombophilias N Immunizations Vaccine Type Date Status Note Provider Nam e and Address Organization Details Recorded Time MMR 10/23/1999 completed Not Available [facility] 10/05/2024 16:48:00 Hep B, adolescent or pediatric 10/23/1999 completed Not Available [facility] 16:48:00 Hep B, adolescent or pediatric 11/20/1999 completed Not Available [facility] 16:48:00 Hep B, adolescent or pediatric 05/23/2000 completed Not Available [facility] 5 16:48:00 Past Encounters Encounter ID Performer Location Encounter Start Date Encounter Closed Date Diagnosis/Indication Diagnosis SNOMED-CT Code Diagnosis ICD10 Code Diagnosis IMO Codes Diagnosis Note [id number] MIKA Meadows [facility] [address] [place] [address] 2 02/27/2024 11:30:19 02/27/2024 12:35:54 Adult health examination 718060073 Z00.00 Testostero ne level below reference range 745233980 R89.[address] Baldwin Vitamin B1 2 deficiency (non anemic) 74431927 E53.8 Vitamin D below reference range 988735196 E55.9 Generalize d anxiety disorder 52041689 F41.1 Obstructiv e sleep apnea syndrome 21201842 G47.33 Reviewed recent sleep study. GINA observed on HST. [employer] recommende d. Body mass index 30+ - obesity 583663697 Z68.33 [id number] MIKA Meadows [facility] [address] [place] [address] 10/05/2024 16:47:14 10/05/2024 17:36:44 Hormone level - finding 677771524 R89.1 6723220 Vitamin D deficiency 347 51432 E55.9 76416 Hyperlipidemia 35905036 E78.5 1194016 Thyroid di sorder screening 256381985 Z13.29 39130 Generalize d anxiety disorder 14516597 F41.1 Health Concerns Section Related Observation LastModified by Organization Detai ls LastModified Time None Recorded Concern Status LastModified by Organization Details LastModified Time None Recorded Advance Directives Directive N: Payers Insurance Date Sequence Insurance Name Policy Number Policy Buckley Covered Member ID Buckley Member ID Guarantor Name 10/06/2024 1 [facility] (MEDICAID HMO) Panchito Kohler [id number] Panchito Kohler 03/29/2024 1 UNSPECIFIED REMIT PAYOR Panchito Kohler Notes Date Note Type Note Provider Name and Address Organization Details Recorded Time 02/27/2024 text/html [facility]. Seeing Dr Baldwin. Was using testosterone gel but levels still low. Just did additional labs earlier this week.History anxiety/depression. Doing well on Pristiq.Recently had home sleep study but never heard results. MIKA Meadows [address] [place] [address], [phone], [employer] 02/27/2024 15:31:35 10/05/2024 text/html ROS as noted in the HPI Patient presents for followupNeeds refills on Pristiq. It is working well.Due for labs MIKA Meadows [address] [place] [address], [phone], [employer] 10/05/2024 17:47:20
--- OUTSIDE RECORDS SUMMARY | 2025-02-01 13:17 | XMS_ITS | Clinical Summary ---
Author Organization [facility] yste Address [address] [place] [address] Care Team Providers Care Melting Operator Name Role Phone Provider, No Known Primary [...] ANNUAL PHYSICAL 03/09/2017 HEPATITIS C SCREENING 03/09/2017 INFLUENZA VACCINE 11/06/2024 Pneumococcal Vaccine 0-49 Aged Out No longer eligible based on patient's age to complete this topic Insurance [employer] Care Teams Melting Operator Relationship Specialty Start Date End Date Provider, No Known [facility] [place] [address] PCP - General 03/09/17
--- OUTSIDE RECORDS SUMMARY | 2025-02-01 13:17 | XMS_ITS | Referral Summary ---
Author Organization [employer] ([place], [place], [place], [place]) Address [address] [place] [address] Care Team Providers Care Service Control Operator Name Role Phone Elsie Boyle PA-C Primary Care Provider [phone] Kaya Mahoney MD Unavailable Allergies No known [...] Diagnosed Date Hyperprolactinemia 08/06/2022 Hypotestosteronemia 08/06/2022 Immunizations Immunization Administration Dates Next Due Hepatitis B 05/23/2000,11/20/1999,10/23/1999 [...] Date Zoran rded Speak language other than Latvian at home Not on file 04/25/2023 Want [...] Plan of Treatment Not on file Insurance [facility] Care Teams Service Control Operator Relationship Specialty Start Date End Date Elsie Boyle PA-C [address] [place] [address] PCP - General Physician Helper Marble Finisher 05/29/22 Kaya Mahoney MD [address] [facility], [place] [id number] Director Of Quality Improvement Endocrinology 08/06/22
--- OUTSIDE RECORDS SUMMARY | 2025-02-01 13:17 | XMS_ITS | Clinical Summary ---
Author Organization [employer] ([place], [place], [place], [place]) Address [address] [place] [address] Care Team Providers Care Swimming Pool Maintenance Name Role Phone Elsie Boyle PA-C Primary Care Provider [phone] Kaya Mahoney MD Unavailable Allergies No known [...] Date Zoran rded Speak language other than Venezuelan at home Not on file 04/25/2023 Want [...] COVID-19 VACCINE (1 - 2023-2 5 season) 2024 Influenza Vaccine (#1) 2024 Pneumococcal Vaccine: 0-49 Years Aged Out No longer eligible based on patient's age to complete this topic Insurance [facility] Care Teams Swimming Pool Maintenance Relationship Specialty Start Date End Date Elsie Boyle PA-C [address] [place] [address] PCP - General Physician Coding Validator 05/29/22 Kaya Mahoney MD [address] [place] [address] Under Ground Miner Endocrinology 08/06/22
--- OUTSIDE RECORDS SUMMARY | 2025-02-01 13:17 | XMS_ITS | Data Portability ---
Author Organization [facility] Address [address] [place] [address] Assessment No assessment recorded. Plan of Treatment Reminders Order Date Submit Date Provider Last Modified By Organization Details Last Modified Time Details Appointments None record ed. Lab None record ed. Referral None record ed. Procedures None record ed. Surgeries None record ed. Imaging None record ed. Medication Orders None record ed. Patient TargetsNo targets recorded. Patient InstructionsNo instructions recorded. Reason for Referral None Reported. Problems Name Problem SNOMED Code Status Onset Date Resolution Date Notes Provider Name and Address Organization Details Recorded Time Hyperlipidemia 95464093 Active 2023 Ericka ledesma [facility] 13:50:59 Problem Notes None recorded. Procedures Surgical History Date Name Laterality Status Provider Name and Address Organization Details Recorded Time 03/12/20 24 Cryosurgery Dermatology completed Ceci Delgadillos, [employer] [address], [place], [address], [facility] 03/17/2024 16:36:49 repair of meniscus completed [facility] 03/12/2024 13:53:22 Periodontal mucosal grafting completed [facility] 03/12/2024 13:53:31 Imaging Results None recorded. Procedure Notes None recorded. Medical Equipment None Reported. Allergies No known drug allergies Medications Name Sig Start Date Stop Date Status Note LastModified by Organization Details LastModified Time amoxicillin 500 mg capsule 03/12 completed Not Available Not Available Not Available atorvastati n 10 mg tablet active Not Available Not Available Not Available hydrocodone 5 mg-acetamin ophen 325 mg tablet 03/12 completed Not Available Not Available Not Available cyanocobala min (vit B-12) 1,000 mcg/mL injection solution 03/12 completed Not Available Not Available Not Available ibuprofen 600 mg tablet active Not Available Not Available Not Available methylpredn isolone 4 mg tablets in a dose pack active Not Available Not Available Not Available Vitamin D2 1,250 mcg (50,000 unit) capsule active Not Available Not Available Not Available cefdinir 300 mg capsule TAKE 1 CAPSULE BY MOUTH TWICE DAILY 03/12 completed Not Available Not Available Not Available fluticasone propionate 50 mcg/actuati on nasal spray,suspe nsion USE 1 SPRAY(S) IN EACH NOSTRIL ONCE DAILY 03/12 completed Not Available Not Available Not Available amoxicillin 875 mg-potassiu m clavulanate 125 mg tablet 03/12 completed Not Available Not Available Not Available cholecalcif amrit (vitamin D3) 25 mcg (1,000 unit) capsule active Not Available Not Available Not Available testosteron e 50 mg/5 gram (1 %) transdermal gel APPLY 2 TUBES DAILY TOPICALLY TO THE SKIN FOR 30 DAYS active Not Available Not Available No t Available desvenlafax ine succinate ER 50 mg tablet,exte nded release 24 hr 03/12 completed Not Available Not Available Not Available desvenlafax ine succinate ER 100 mg tablet,exte nded release 24 hr TAKE 1 TABLET BY MOUTH ONCE DAILY active Not Available Not Available No t Available desvenlafax ine succinate ER 25 mg tablet,exte nded release 24 hr 03/12 completed Not Available Not Available Not Available Vitals Date Recorded Body height Body mass index (BMI) Body weight Body temperature Heart rate Oxygen saturation Oxygen saturation in Arterial blood by Pulse oximetry Respiratory rate Systolic And Diastolic Provider Name and Address Organization Details Last Updated DateTime 4 193.04 cm 33.7 kg/m2 560540. 09 g 97.7 [degF] 88 /min 97 % 97 % 16 /min 132/84 mm[Hg] Ericka gomez [place] - [facility] 13:56:15 Social History Question Answer Notes LastModified by Organizat ion Details LastModified Time Tobacco Smoking Status Never Smoker Ericka ledesma, [place] - [facility] 03/12/2024 13:52:48 What Is Your Level Of Caffeine Consumption? None [email or web address] Information not available 03/12/2024 What Was The Date Of Your Most Recent Tobacco Screening? 03/12/2024 [email or web address] Information not available 03/12/2024 What Is Your Relationship Status? [email or web address] Information not available 03/12/2024 Has Tobacco Cessation Counseling Been Provided? No [facility] Information not available 03/12/2024 Sex: Male Functional Status Question Answer Note LastModified by Organizat ion Details LastModified Time How many times per week do you consume alcohol? 3-4 times per week [facility] Information not available 03/12/2024 Do you use any illicit or recreational drugs? No [facility] Information not available 03/12/2024 Do you or have you ever used any other forms of tobacco or nicotine? Yes [facility] Information not available 03/12/2024 What is your level of alcohol consumption? Moderate [facility] [facility] Information not available 03/12/2024 Do you or have you ever used smokeless tobacco? Currently uses moist powdered tobacco [facility] Information not available 03/12/2024 Do you or have you ever used e-cigarettes or vape? Never used electronic cigarettes [facility] Information not available 03/12/2024 Mental Status None recorded. Family History Relationship Description Onset Age of this Age Resolved Age Notes LastModified by Organization Details LastModified Time Mother Malignant neoplasm of cervix uteri [email or web address] Not available 03/12/2024 13:51:28 Father Essential hypertension [email or web address] Not available 03/12/2024 13:51:40 Paternal Grandmother Type 2 diabetes mellitus [email or web address] Not available 08/2023 13:51:58 Medical History No medical history recorded. Past Encounters Encounter ID Performer Location Encounter Start Date Encounter Closed Date Diagnosis/Indication Diagnosis SNOMED-CT Code Diagnosis ICD10 Code Diagnosis IMO Codes Diagnosis Note [id number] [facility] [address] [place] [address] 03/12/2024 13:42:39 03/19/2024 09:45:00 Neoplasm of uncertain behavior of skin 58427209 D48.5 Follow up for biopsy. Seborrheic keratosis 394 014342 L82.1 Today you had cryotherap y for treatment of irritated SK. Apply bacitracin or vasoline to treated areas. A blister and some redness may occur. Monitor for signs of infection such as swelling, drainage or red streaking at site, if symptoms occur, follow up immediatel y or report to ER. Health Concerns Section Related Observation LastModified by Organization Detai ls LastModified Time None Recorded Concern Status LastModified by Organization Details LastModified Time None Recorded Advance Directives Directive None Recorded Payers Insurance Date Sequence Insurance Name Policy Number Policy Buckley Covered Member ID Buckley Member ID Guarantor Name 04/02/2024 [place] [facility] (MEDICAID) Panchito Kohler [id number] Panchito Kohler 04/02/2024 1 [employer] [place] ([place]ICA[place] O) Panchitoabdulaziz Kohler [id number] Panchito Kohler Notes Date Note Type Note Provider Name and Address Organization Details Recorded Time 03/12/2024 text/html Patient presents to clinic with lesion to right eyebrow x 1 year. Patient denies itching, pain, or change. Do you use sunscreen? noHave you ever had a sunburn where you blister or peel? yesDid you have a blistering sunburn prior to age 16? yesHave you ever been in the the tanning bed? yesWhen you are exposed to sun you red then tanDo you have a history of any specific skin diseases? noWhat surgical procedures have you had in the last 6 months? noDo you bleed easily? noDo you have a family history of skin cancer? noHave you ever been dx with a skin cancer? no Ceci Shay, [employer] [address], [place], [address], [place] - [facility] 03/17/2024 16:37:52
[2025-02-01 13:29] LABS: Hematocrit 48.0 % (42.0-52.0); Hemoglobin 16.8 g/dL (14.1-18.0); Immature Granulocytes % 0.3 %; Mean Corpuscular HGB Conc 35.0 g/dL (31.8-35.4); Mean Corpuscular Hemoglobin 31.9 pg (27.0-31.2); Mean Corpuscular Volume 91.1 fl (80-94); Nucleated Red Blood Cells % 0 %; Platelet Count 300 K/mm3 (142-424); Red Blood Count 5.27 M/mm3 (4.60-6.20); Red Cell Distribution Width-SD 40.1 fL; White Blood Count 7.1 K/mm3 (4.8-10.8)
[2025-02-02 08:14] LABS: Testosterone,Total 382 ng/dL (264-916)
== END 2025-02-01 23:59 | disposition home or self-care (01) ==
LOC: LAB 13:01
PROVIDERS: PCP Physician Assistant; Visit Provider Urology
DX: R79.89 Other specified abnormal findings of blood chemistry (principal); R53.83 Other fatigue; R68.82 Decreased libido
CPT/HCPCS: 36415; 84270; 84403; 85025